=== PATIENT | female | born 1955 ===

== ENCOUNTER → 2016-08-11 | Outpatient (CLI) | payer OTHER ==
--- NOTE | 2016-08-11 11:56 | XR ---
Bilateral knees HISTORY: Chronic knee pain 2 views of each knee submitted. No comparisons Marginal spurring and joint space loss is most pronounced in the medial compartments bilaterally. Ali gnment is maintained and bone mineralization is mildly reduced. No evident joint effusion. IMPRESSION: Osteoarthritis
--- NOTE | 2016-08-11 11:58 | XR ---
Lumbar spine HISTORY: Back pain 3 views of the lumbar spine correlated to previous exam 05 August 2015 No significant interval change is evident. Bone mineralization is reduced. Lumbar vertebral bodies sh ow preserved height and alignment. Minimal anterolisthesis grade 1 L5-S1. Sclerosis present in the po sterior elements. Mild multilevel spondylosis. Disc spaces are maintained. IMPRESSION: Degenerative disc disease, facet arthropathy, osteopenia, stable exam
== END | disposition home or self-care (01) ==
LOC: RADXRMAIN 10:47
PROVIDERS: ATTEND Internal Medicine
DX: M17.0 Bilateral primary osteoarthritis of knee (principal); M51.36 Other intervertebral disc degeneration, lumbar region; M46.86 Other specified inflammatory spondylopathies, lumbar region
CPT/HCPCS: 72100

== ENCOUNTER 2016-09-08 08:46 | Day surgery (SDC) | payer OTHER ==
[2016-09-07 09:22] VITALS: BMI 38.9
[~2016-09-08 08:46] MED LIST: LACTATED RINGERS 1,000 ML IV SCH; LIDOCAINE 1% 20 ML VIAL (10MG/ML) FOR IV START INTRADERMA PRN
[2016-09-08 10:16] VITALS: RESP 16; TEMP 97
[2016-09-08] MEDS ORDERED: LIDOCAINE 1% 20 ML VIAL (10MG/ML) FOR IV START INTRADERMA ONE (10:27)
[2016-09-08 10:29] LABS: Glucose,Whole Blood 104 mg/dL (75-99)
[2016-09-08] MEDS ORDERED: PROPOFOL 10 MG/ML 20 ML VIAL IV ONE (10:29)
[2016-09-08 11:30] VITALS: BP 110/76; PULSE 82
[2016-09-08 11:30] LABS: Glucose,Whole Blood 109 mg/dL (75-99)
--- NOTE | 2016-09-09 00:24 | P.PCN ---
Date of Procedure: 09/08/16 Procedure(s) Performed: Procedure: 1. Esophagogastroduodenoscopy and biopsy. 2. Colonoscopy and biopsy. Preoperative diagnosis: Change in bowel habits. Postoperative diagnosis: 1. Small sliding hiatal hernia with no obvious esophagitis or complicated reflux disease. 2. Mild gastritis. 3. Mild diverticulosis of the colon, otherwise, colon and terminal ileum within normal limits, biopsies obtained. Brief clinical history: the patient is a 61-year old female who I have evaluated in the office earlier this month for post-prandial diarrhea of 7 years duration. No alarm symptoms. Had a prior EGD 7 years ago and colonoscopy 15 years ago. No alarm symptoms. Procedure: With the patient on her left lateral decubitus position and after informed consent and adequate sedation, I passed the Olympus-GIF 160 video upper endoscope through the cricopharyngeus down the esophagus. GE junction was around 38 cm from the incisors and there was a small sliding hiatal hernia. The esophagus did not show any erosions, ulcers, strictures or Ritter's esophagus. The endoscope was then passed into the stomach which was insufflated with air and inspected in detail including the retroflex view in the cardia. There was some mottling and erythema in the antrum but no ulcers or erosions. Pyloric channel did not show any ulcers. Duodenal bulb, post bulbar area and descending duodenum showed minimal erythema. I obtained biopsies from the duodenum, antrum and esophagus then the endoscope was withdrawn and I proceeded with the colonoscopy. Perianal area did not show any fissures or fistulas. There were no masses felt on digital rectal examination. The Olympus CFQ 160L video colonoscope was then inserted in the rectum in the usual fashion and advanced to the cecum. I intubated the ileocecal valve and examined the terminal ileum. There were few diverticular orifices seen scattered along the length of the bowel mostly on the left side with no evidence of acute diverticulitis or strictures. The mucosa of the colon and terminal ileum appeared healthy. No polyps or tumors were seen. Biopsies were obtained from the terminal ileum and colon, then I retroflexed the endoscope in the rectum before the endoscope was withdrawn. The patient tolerated the procedure well. Plan: The patient was reassured. I discussed also with her son. Will await pathology results. She will follow-up with you as planned and I will see in the office and keep you updated on her progress.
== END 2016-09-08 11:44 | disposition home or self-care (01) ==
LOC: ORWHC2ENDO 08:46
DX: K20.0 Eosinophilic esophagitis (principal); K29.50 Unspecified chronic gastritis without bleeding; K44.9 Diaphragmatic hernia without obstruction or gangrene; K57.30 Diverticulosis of large intestine without perforation or abscess without bleeding; I10 Essential (primary) hypertension; E11.9 Type 2 diabetes mellitus without complications; Z79.84 Long term (current) use of oral hypoglycemic drugs; Z79.899 Other long term (current) drug therapy
CPT/HCPCS: 88305; 88342; 45380; 43239; J2704

== ENCOUNTER → 2016-09-21 | Outpatient (CLI) | payer OTHER ==
--- NOTE | 2016-09-21 22:10 | MR ---
EXAMINATION TYPE: MR jeffery/daja wo con DATE OF EXAM: 09/21/2016 6:56 PM COMPARISON: NONE HISTORY: Osteoarthritis CONTRAST: 0 mL intravenous MultiHance. TECHNIQUE: Multiplanar, multisequence images of the lumbar spine were acquired. FINDINGS: L5-S1: No significant disc bulge or disc herniation. No spinal canal stenosis. No foraminal stenosi s. Mild facet hypertrophy is present. Disc desiccation is present. Mild grade 1 spondylolisthesis ma y be present. L4-L5: No significant disc bulge or disc herniation. No spinal canal stenosis. No foraminal stenosi s. Mild left facet hypertrophy is present. Disc desiccation is present.. L3-L4: No significant disc bulge or disc herniation. No spinal canal stenosis. No foraminal stenosi s. . L2-L3: No significant disc bulge or disc herniation. No spinal canal stenosis. No foraminal stenosi s. . L1-L2: No significant disc bulge or disc herniation. No spinal canal stenosis. No foraminal stenosi s. . T12-L1: No significant disc bulge or disc herniation. No spinal canal stenosis. No foraminal stenos is. . Cord terminates at the L1 level. IMPRESSION: 1. Disc desiccation L4-5 L5-S1. 2. Minimal grade 1 spondylolisthesis of L4 anterior and L5. 3. Very mild facet hypertrophy present L4-5 L5-S1. EXAMINATION TYPE: MR jeffery/daja wo con DATE OF EXAM: 09/21/2016 6:56 PM COMPARISON: NONE HISTORY: Osteoarthritis CONTRAST: Performed utilizing 0 mL intravenous MultiHance gadolinium contrast. TECHNIQUE: Multiplanar multiecho imaging on a 3.0 Ginette magnet is performed through the cervical spin e. Some artifact appears to be present. FINDINGS: The craniovertebral junction is normal. Vertebral body alignment is normal. C7-T1: No focal disc herniation or significant disc bulge is evident. No spinal canal stenosis or n eural foraminal stenosis is present. C6-7: Some right paracentral disc bulge may be present with minimal anterior thecal sac contact. No s mallorie canal stenosis present. No cord contact is evident. Neural foramen are patent.. C5-6: Broad-based disc bulge has anterior thecal sac compression. Borderline spinal canal stenosis is present. Cord contact is present. Signal abnormality is not clearly identified. Artifact somewhat li mits this evaluation. Right foramen is patent. There is moderate left foraminal stenosis. Subligament ous central disc herniation extending superiorly may be present.. C4-5: No focal disc herniation or significant disc bulge is evident. No spinal canal stenosis or malaika ral foraminal stenosis is present. C3-4: Central and right paracentral broad-based disc bulge is present. This has cord contact. AP spin al canal stenosis is present measuring 0.8 cm. Left foramen is patent. Moderate right foraminal narro wing is present. Correlate with radicular symptoms.. C2-3: No focal disc herniation or significant disc bulge is evident. No spinal canal stenosis or malaika ral foraminal stenosis is present. IMPRESSIONS: 1. Central right paracentral broad-based disc bulging C3-4 and broad-based disc bulging C5-6 with mod erate anterior thecal sac compression. Spinal canal stenosis present at these levels. 2. Uncovertebral joint hypertrophy and disc bulging causing foraminal stenosis on the right at C3-4 a nd C5-6.
== END | disposition home or self-care (01) ==
LOC: RADMRIMAIN 17:29
PROVIDERS: ATTEND Internal Medicine
DX: M43.16 Spondylolisthesis, lumbar region (principal); M48.02 Spinal stenosis, cervical region; M99.71 Connective tissue and disc stenosis of intervertebral foramina of cervical region; M50.21 Other cervical disc displacement, high cervical region
CPT/HCPCS: 72141; 72148

== ENCOUNTER 2016-10-31 11:45 | Emergency (ER) | payer OTHER ==
[2016-10-31 12:01] VITALS: RESP 18; TEMP 99
--- NOTE | 2016-10-31 12:24 | ED ---
ENT HPI - General Chief complaint: ENT Stated complaint: SORE THROAT Time Seen by Provider: 10/31/16 12:03 Source: family Mode of arrival: wheelchair Limitations: language barrier - History of Present Illness Initial comments: Patient is a 61-year-old female presenting to the emergency department with her complaining of sore throat. Patient only speaks and most of information is obtained from son via phone and minimal history from who is at bedside who doesn't speak very good Bulgarian either. Per son, patient started complaining of chills and fevers 2 days ago. When asked where it hurts , patient points to left side neck just below her left ear. at bedside states that he also had a sore throat but it lasted only for 1 day and it's now gone. - Related Data Home Medications Medication Instructions Recorded Confirmed Losartan [Cozaar] 50 mg PO DAILY 09/07/16 09/07/16 glipiZIDE [Glucotrol] 10 mg PO AC-BRKFST 09/07/16 09/07/16 Allergies Allergy/AdvReac Type Severity Reaction Status Date / Time No Known Allergies Allergy Verified 10/31/16 12:01 Review of Systems ROS Statement: Those systems with pertinent positive or pertinent negative responses have been documented in the HPI. ROS Other: All systems not noted in ROS Statement are negative. Past Medical History Past Medical History: Diabetes Mellitus, Hypertension History of Any Multi-Drug Resistant Organisms: None Reported Past Surgical History: Section, Hysterectomy Past Anesthesia/Blood Transfusion Reactions: No Reported Reaction Past Psychological History: No Psychological Hx Reported Smoking Status: Never smoker Past Alcohol Use History: None Reported Past Drug Use History: None Reported - Past Family History Mother Family Medical History: No Reported History General Exam Limitations: language barrier General appearance: alert, in no apparent distress Head exam: Present: atraumatic, normocephalic, normal inspection Eye exam: Present: normal appearance, PERRL, EOMI. Absent: scleral icterus, conjunctival injection, periorbital swelling, periorbital tenderness ENT exam: Present: normal oropharynx, mucous membranes moist, TM's normal bilaterally, normal external ear exam Expanded Ear exam: Present: normal external inspection Mouth exam: Present: normal external inspection, tongue normal. Absent: drooling, trismus, tongue elevation Teeth exam: Present: normal inspection Throat exam: normal inspection, other (Posterior pharynx slightly reddened). negative: tonsillar erythema, tonsillomegaly, tonsillar exudate, R peritonsillar mass, L peritonsillar mass Neck exam: Present: normal inspection, full ROM, lymphadenopathy (Tender cervical lymph node). Absent: tenderness, meningismus Respiratory exam: Present: normal lung sounds bilaterally. Absent: respiratory distress, wheezes, rales, rhonchi, stridor Cardiovascular Exam: Present: regular rate, normal rhythm, normal heart sounds GI/Abdominal exam: Present: soft, normal bowel sounds. Absent: tenderness, guarding Extremities exam: Present: normal inspection, full ROM, normal capillary refill. Absent: tenderness Back exam: Present: normal inspection, full ROM Neurological exam: Present: alert, normal gait Psychiatric exam: Present: normal affect, normal mood Skin exam: Present: warm, dry, intact, normal color Course Vital Signs 10/31/16 11:56 Temperature 99 F Pulse Rate 92 Respiratory 18 Rate Blood Pressure 126/74 Medical Decision Making - Medical Decision Making Patient is 61-year-old female presenting to the emergency department with complaints of fevers, chills, and sore throat. Strep screen negative. Chest x- ray with evidence of cardiomegaly with no evidence of heart failure as read by radiologist. Patient discharged home in stable condition with the impression of viral pharyngitis. Patient started to follow-up with primary care physician and return to the emergency department if symptoms do not improve or get worse. - Lab Data Lab Results 10/31/16 Range/Units 12:15 Group A Strep Rapid Negative (Negative) - Radiology Data Radiology results: report reviewed Chest x-ray Disposition Clinical Impression: Pharyngitis Disposition: HOME SELF-CARE Condition: Good Instructions: Pharyngitis (ED) Additional Instructions: Increase hydration. May take Motrin or Tylenol for pain. Soft diet. Please follow-up with the primary care physician as directed. If symptoms do not improve or get worse previous return to the emergency department. Referrals: Vipul Cabrera MD [Primary Care Provider] - 1-2 days Time of Disposition: 14:39
--- NOTE | 2016-10-31 14:20 | XR ---
EXAMINATION TYPE: XR chest 2V DATE OF EXAM: 10/31/2016 1:58 PM COMPARISON: NONE HISTORY: Sore throat TECHNIQUE: Frontal and lateral views of the chest are obtained. FINDINGS: There is general coarsening of interstitial markings. Heart appears enlarged. There is no pleural effusion. There are no hilar masses. There is thoracic mild kyphotic curvature. IMPRESSION: Cardiomegaly. Coarse lung markings probably related to pulmonary fibrosis. I see no pleu ral fluid to suggest heart failure.
[2016-10-31 15:07] VITALS: BP 124/74; PULSE 94
== END 2016-10-31 15:05 | disposition home or self-care (01) ==
LOC: EC 11:45
DX: J02.8 Acute pharyngitis due to other specified organisms (principal); I10 Essential (primary) hypertension; E11.9 Type 2 diabetes mellitus without complications; Z79.899 Other long term (current) drug therapy
CPT/HCPCS: 71020; 87081; 87430; 99283

== ENCOUNTER → 2016-11-27 | Outpatient (CLI) | payer OTHER ==
[2016-11-27 13:30] VITALS: BP 116/81; PULSE 81; RESP 16
--- NOTE | 2016-11-27 14:41 | P.CONS ---
History of Present Illness - Reason for Consult Consult date: 11/27/16 - History of Present Illness This is the initial consultation visit for this 61-year-old female with a chronic history of severe neck pain with radiation to the upper extremities associated with numbness and tingling sensation, pain started more than 15 years ago, and a increased in intensity over time, she denies any initiating event, also patient complained of severe low back pain with radiation to the posterior aspect of her lower extremity bilaterally, the pain is interfering with her quality of life and make are not able to ambulate, she used cane to walk, she denies any fever or night sweats she denies any change in the bowel movements or urination. Past Medical History Past Medical History: Diabetes Mellitus, Hypertension History of Any Multi-Drug Resistant Organisms: None Reported Past Surgical History: Section, Hysterectomy Past Anesthesia/Blood Transfusion Reactions: No Reported Reaction Past Psychological History: No Psychological Hx Reported Smoking Status: Never smoker Past Alcohol Use History: None Reported Past Drug Use History: None Reported - Past Family History Mother Family Medical History: No Reported History Medications and Allergies Home Medications Medication Instructions Recorded Confirmed Type Losartan [Cozaar] 50 mg PO DAILY 09/07/16 11/27/16 History glipiZIDE [Glucotrol] 10 mg PO AC-BRKFST 09/07/16 11/27/16 History Allergies Allergy/AdvReac Type Severity Reaction Status Date / Time No Known Allergies Allergy Verified 10/31/16 12:01 Physical Exam Vitals: Vital Signs Pulse Resp BP Pulse Ox 11/27/16 13:08 81 16 116/81 97 Intake and Output 11/26/16 11/27/16 11/27/16 22:59 06:59 14:59 Other: Weight 108.862 kg Patient Weight 11/28/16 06:59 Weight 108.862 kg Social history : not smoker , NO ETOH , NO Illegal drugs use . Review of Systems : 1- Constitutional : no chills , no fever , no night sweats , 2- Ears : no ear discharge , no change in hearing 3-Nose, Mouth ,Throat ; no bleeding gums, no sore throat , no epistaxis , 4-Cardiovascular : Denies chest pain, , no orthopnea , no palpitation 5-Respiratory : Denies cough , no dyspnea , no hemoptysis 6-Gastrointestinal :, no change in bowel habits , no coffee- ground emesis . 7-Genitourinary : No hematuria , no discharge , no incontinence, 8-Musculoskeletal : ++gait dysfunction , report low back pain , 9- Neurological : no ataxia , no tremor , no sezure , 10-Psychatric , no suicidal ideation no hallucination 11- Endocrine : no cold intolerence , no polyuria , no polydypsia , 12-Hematologic : no easy bleeding , no easy brusing , 13-Allergic / immunology : no angioedema , no wheezing ,no allergic rhinitis 14-Integumentary : no brttle nails , no change hair / nails , no foot/leg ulcers . Physical Examinations : 1-Constitutional : Cooperative , not in acute distress . 2-HEENT : nech ; supple , no Lymphadenopathy , no Thyromegaly , :eyes , no icterus, no photophobia . ENT : , normal oropharynx , no Thrush 3- Respiratory : Chest clear to auscultations Bilaterally , no wheezing . 4- Cardiovascular : regular rate and rhythem , S1 , S2 , no S3 , no S4. 5- Gastrointestinal: abdomen soft no tenderness , no organomegally . 6- Genitourinary : Defferred . 7-Integumentary : No cellulitis , no ulcers , normal skin turgor , no cyanotic . 8- neurologic : Cranial nerve II to XII intact , no focal neurological deffecit 9-psychatric : alert , oriented X 3 , appropriate affect , intact judgment and insight . 10-Lymphatic : no Lymphadenopathy. 11- musculoskeltal: normal gait Cervical Spine motor stregnth in the deltoid and biceps, normal right side , normal Left side motor stregnth biceps and the wrist extensors normal right side ,normal left side . motor stregnth in the triceps muscle . normal Right side , normal Left side deep tendon reflexes normal at the biceps , normal at Brachioradialis , normal at triceps. positive cervical facet loading test . Lumber spine moter stegnth lower extremities ,thigh and legs 4/5 Right side , 4/5 Left side deep tendon reflexes : normal Knee Jerk , normal ankle Jerk positive lumber facet Loading Test Range of motion of the lumbar spine Flexion 30 degrees, extension 10 degrees strait leg raising test , positive at 45 degree Fabere test positive RT and positive LT . Results Comments: MRI of the cervical spine done September 21 2016 mL 34 central disc C5-C6 broad based disc bulging at C6 7 disc bulging. MRI of the lumbar spine L4 5 and L5-S1 facet joint hypertrophy Assessment and Plan Plan: Assessment and plan=1-cervical radiculopathy. 2-cervical bulging disc disease. 3-lumbar spondylosis with facet arthropathy without myelopathy Patient could benefit from Neurontin 100 mg daily at bedtime increased gradually to 3 times a day Patient could benefit from cervical epidural steroid injections under fluoroscopy guidance, After we treat her neck pain then we can focus or attention to the low back pain , and patient will benefit from diagnostic medial branch block and possibly radiofrequency ablation of the medial branch lumbar area Time with Patient: Greater than 30
== END | disposition home or self-care (01) ==
LOC: PNWHC3 12:45
PROVIDERS: ATTEND Specialist
DX: M50.122 Cervical disc disorder at C5-C6 level with radiculopathy (principal); M47.816 Spondylosis without myelopathy or radiculopathy, lumbar region; M46.96 Unspecified inflammatory spondylopathy, lumbar region; E11.9 Type 2 diabetes mellitus without complications; I10 Essential (primary) hypertension; Z79.899 Other long term (current) drug therapy
CPT/HCPCS: 99211

== ENCOUNTER 2016-12-31 10:47 | Day surgery (SDC) | payer OTHER ==
[~2016-12-31 10:47] MED LIST changes: -LIDOCAINE 1% 20 ML VIAL (10MG/ML) FOR IV START INTRADERMA PRN
[2016-12-31 11:07] VITALS: RESP 16
[2016-12-31 11:14] VITALS: TEMP 98.2
[2016-12-31 11:18] LABS: Glucose,Whole Blood 93 mg/dL (75-99)
[2016-12-31] MEDS ORDERED: LIDOCAINE 1% 20 ML VIAL (10MG/ML) FOR IV START INTRADERMA ONE (11:18)
--- NOTE | 2016-12-31 11:52 | P.PCN ---
Date of Procedure: 12/31/16 Preoperative Diagnosis: Cervical stenosis Postoperative Diagnosis: Cervical stenosis Procedure(s) Performed: Cervical epidural steroid injection under fluoroscopic guidance Implants: Anesthesia: other (Local with moderate sedation) Surgeon: Emmanuel Hernandez Pathology: none sent Condition: stable Disposition: PACU Indications for Procedure: Operative Findings: Description of Procedure: Patient was seen in preop holding area consent was obtained then she was brought into the procedure 1 placed in prone position. Skin was prepped with Betadine 3 and draped in sterile manner. Lidocaine 1% was used to numb the skin up at the target point that was at the C7-T1 level in the left paramedian approach. I used 20-gauge 3-1/2 inch Touhy epidural needle with loss-of- resistance to air to identify the epidural space. First the needle tip contacted the lamina of T1 and then it walked off the bone and into the epidural space between C7 and T1 was positive [id number] to air negative aspiration for any CSF or blood negative paresthesia I then injected 1 mL of Omnipaque which showed typical epidurogram the view of fluoroscopy. Then I injected 10 mg of Decadron +4 MLS of posterior free normal saline to a total volume of 5 MLS in epidural space. Patient tolerated procedure well.
--- NOTE | 2016-12-31 12:01 | FL ---
EXAMINATION TYPE: FL guided pain mgmt statistic DATE OF EXAM: 12/31/2016 HISTORY: Flouroscopy time 5 seconds of fluoroscopy provided. IMPRESSION: 1. Fluoroscopy time.
[2016-12-31] MEDS ORDERED: IV FLUID CONTINUATION 1,000 ML IV ONE (12:02)
[2016-12-31 12:22] VITALS: BP 110/70; PULSE 82
== END 2016-12-31 12:33 | disposition home or self-care (01) ==
LOC: ORPAIN 10:47
PROVIDERS: ATTEND Anesthesiology
DX: M48.02 Spinal stenosis, cervical region (principal); E66.01 Morbid (severe) obesity due to excess calories
CPT/HCPCS: 62321; J2250; J1100; Q9965; J3010

== ENCOUNTER 2017-01-28 07:11 | Day surgery (SDC) | payer OTHER ==
[2017-01-22 15:07] VITALS: BMI 39.9
[2017-01-28 07:39] LABS: Glucose,Whole Blood 92 mg/dL (75-99)
[2017-01-28 07:46] VITALS: TEMP 98.4
[2017-01-28] MEDS ORDERED: LIDOCAINE 1% 20 ML VIAL (10MG/ML) FOR IV START INTRADERMA ONE (07:50)
[2017-01-28] MEDS ORDERED: IV FLUID CONTINUATION 1,000 ML IV ONE ×2 (07:50→08:41)
[2017-01-28] MEDS ORDERED: LACTATED RINGERS 1,000 ML IV SCH (08:00)
--- NOTE | 2017-01-28 08:31 | P.PCN ---
Date of Procedure: 01/28/17 Preoperative Diagnosis: Postoperative Diagnosis: Procedure(s) Performed: Implants: Surgeon: Catarino Shane Pathology: none sent Condition: stable Disposition: PACU Indications for Procedure: Operative Findings: Description of Procedure: PREOPERATIVE DIAGNOSIS: Cervical radiculopathy. POSTOPERATIVE DIAGNOSIS: Cervical radiculopathy. PROCEDURE 1. Cervical epidural steroid injection under fluoroscopic guidance, C7-T1 level. 2. Cervical epidurogram. ANESTHESIA: Local anesthesia with 1% lidocaine and IV sedation with versed. EBL: Minimal PROCEDURE INDICATION: The patient with neck pain and radiculitis unresponsive to conservative treatment consents for procedure. No use of blood thinners per patient's son. Relief for 2-3 weeks from last ELLYN. PROCEDURE DESCRIPTION / TECHNIQUE: The patient was seen and identified in the preoperative area. Risks, benefits, complications, and alternatives were discussed with the patient (including but not limited to incomplete pain relief, bleeding, infection, nerve damage, and allergies to medications), the patient agreed to proceed with the procedure and signed the consent after all questions were answered. Patient was taken to the OR and time out was completed to verify proper patient , position, laterality of pain, and allergies. Pt was placed in the prone position. A pillow was placed under the patients chest to increase the cervical interlaminar space. The cervical area was prepped and draped in the usual sterile fashion. Critical pause was taken. Vital signs were closely monitored during the procedure. Conscious sedation was used during the procedure to decrease patients anxiety. Using anterior-posterior fluoroscopy, the C7-T1 interlaminar space was identified and the skin over this site was marked and then infiltrated with 1% lidocaine subcutaneously in a paramedian fashion. Subsequently, a 20-gauge 3-1/2 -inch Tuohy epidural needle was inserted and advanced toward the epidural space by means of the loss of resistance technique and guided by AP and lateral fluoroscopy. After negative aspiration for blood or CSF and in the absence of paresthesias, the correct needle position in the epidural space was verified with the injection of 1 mL of the water soluble contrast dye Omnipaque-180 and observing an excellent epidurogram with the epidural spread of the dye, after negative aspiration for blood and CSF and in the absence of paresthesias. Again after negative aspiration, a 4 ml mixture containing 20 mg of Decadron and 2 ml of preservative free Normal Saline solution was injected and a washout of epidurogram was seen. Needle was withdrawn intact, skin was cleansed, and bandages were applied. COMPLICATIONS: None COMMENTS: DISPOSITION / PLANS: The patient was placed in a supine position and transferred to the recovery area in a stable condition for observation. There was no evidence of upper extremity motor or sensory deficit after the procedure. Patient was discharged from the recovery room after meeting discharge criteria. Home discharge instructions were given to the patient by the staff. The patient was reexamined prior to discharge and there were no issues. The patient will schedule a third ELLYN in 2-4 weeks.
[2017-01-28 08:40] VITALS: BP 115/66; PULSE 83; RESP 16
[2017-01-28 08:40] LABS: Glucose,Whole Blood 90 mg/dL (75-99)
--- NOTE | 2017-01-28 09:06 | FL ---
EXAMINATION TYPE: FL guided pain mgmt statistic DATE OF EXAM: 01/28/2017 HISTORY: Flouroscopy time 39 seconds of fluoroscopy provided. IMPRESSION: 1. Fluoroscopy time.
== END 2017-01-28 09:14 | disposition home or self-care (01) ==
LOC: ORPAIN 07:11
PROVIDERS: ATTEND Anesthesiology
DX: M54.12 Radiculopathy, cervical region (principal)
CPT/HCPCS: 62321; 99152; J2250; J1100; Q9965

== ENCOUNTER 2017-02-11 08:13 | Day surgery (SDC) | payer OTHER ==
[2017-02-10 11:12] VITALS: BMI 39.9
[2017-02-11 08:34] VITALS: RESP 16; TEMP 98.1
[2017-02-11 08:34] LABS: Glucose,Whole Blood 88 mg/dL (75-99)
[2017-02-11] MEDS ORDERED: LIDOCAINE 1% 20 ML VIAL (10MG/ML) FOR IV START INTRADERMA ONE (08:35)
--- NOTE | 2017-02-11 08:58 | P.PCN ---
Date of Procedure: 02/11/17 Preoperative Diagnosis: Cervical radiculopathy Postoperative Diagnosis: Same as above Procedure(s) Performed: Cervical epidural steroid injection under fluoroscopic guidance Implants: Anesthesia: other (Conscious sedation with IV fentanyl and Versed) Surgeon: Emmanuel Hernandez Pathology: none sent Condition: stable Disposition: PACU Indications for Procedure: Operative Findings: Description of Procedure: The patient was seen in preop holding area consent was obtained and was brought into the procedure 1 placed in prone position. Skin was prepped with Betadine 3 and draped in a sterile manner. Lidocaine 1% was used to numb the skin up at the target point that was C7-T1 level in the left paramedian approach. 20- gauge 3-1/2 inch Touhy epidural needle with [id number] to air identify the epidural space. There was positive [id number] to air and negative aspiration for any CSF or blood at about 8.5 cm from skin. Then injected 1 mL of Omnipaque which showed typical epidurogram on the AP view of fluoroscopy after that I injected a 20 mg of Decadron +3 MLS of preservative-free normal saline to a total volume of 5 MLS in epidural space. He Patient tolerated procedure well.
[2017-02-11 09:09] LABS: Glucose,Whole Blood 91 mg/dL (75-99)
--- NOTE | 2017-02-11 09:12 | FL ---
EXAMINATION TYPE: FL guided pain mgmt statistic DATE OF EXAM: 02/11/2017 HISTORY: Flouroscopy time 15 seconds of fluoroscopy provided. IMPRESSION: 1. Fluoroscopy time.
[2017-02-11 09:31] VITALS: BP 100/69; PULSE 86
== END 2017-02-11 09:43 | disposition home or self-care (01) ==
LOC: ORPAIN 08:13
DX: M54.12 Radiculopathy, cervical region (principal); E11.9 Type 2 diabetes mellitus without complications; E66.9 Obesity, unspecified
CPT/HCPCS: 62321; 99152; J2250; J1100; Q9965; J3010

== ENCOUNTER → 2018-08-17 | Outpatient (CLI) | payer MEDICARE, OTHER ==
--- NOTE | 2018-08-17 15:56 | MR ---
EXAMINATION TYPE: MR jeffery/daja wo con DATE OF EXAM: 08/17/2018 COMPARISON: 09/21/2016 HISTORY: low back pain/neck pain CONTRAST: Performed utilizing 0 mL intravenous Gadavist gadolinium contrast. TECHNIQUE: Multiplanar multiecho imaging on a 3.0 Ginette magnet is performed through the cervical spin e. FINDINGS: The craniovertebral junction is normal. Vertebral body alignment is normal. Disc desicca tion is present throughout the cervical spine. Disc heights are preserved. Signal through the spinal cord appears normal. C7-T1: No focal disc herniation or significant disc bulge is evident. No spinal canal stenosis or n eural foraminal stenosis is present. C6-7: No focal disc herniation or significant disc bulge is evident. No spinal canal stenosis or malaika ral foraminal stenosis is present. C5-6: Broad-based disc bulge is present. This is greater into the left paracentral canal. Cord contac t is present. Minimal cord flattening may be present on the right paracentral region. No AP spinal ca nal stenosis present. Neural foramen have mild narrowing.. C4-5: There is a tiny central protrusion with mild anterior thecal sac compression. No spinal canal s tenosis or neural foraminal stenosis present. No cord contact is evident.. C3-4: There is central protrusion with moderate anterior thecal sac compression. Minimal cord contact may be present. No deformity is identified. No spinal canal stenosis or neural foraminal stenosis is present.. C2-3: No focal disc herniation or significant disc bulge is evident. No spinal canal stenosis or malaika ral foraminal stenosis is present. IMPRESSIONS: 1. Disc bulging C5-6 greater into the right paracentral region has moderate anterior thecal sac compr ession minimal cord flattening of the right. No stenosis is present. 2. Central disc protrusion C3-4, C4-5 without cord contact or stenosis. EXAMINATION TYPE: MR jeffery/daja wo con DATE OF EXAM: 08/17/2018 COMPARISON: 09/21/2016 HISTORY: low back pain/neck pain CONTRAST: 0 mL intravenous Gadavist. TECHNIQUE: Multiplanar, multisequence images of the lumbar spine were acquired. FINDINGS: Minimal disc bulge is present L5-S1 with epidural space presence. No compression of the thecal sac is evident. No spinal canal stenosis present. Neural foramen are patent. Disc heights are preserved. Vertebral body heights are preserved. Minimal disc desiccation is present through the lumbar spine greatest at L4-5. IMPRESSION: 1. Minimal disc bulging L5-S1
== END ==
LOC: RADMRIMAIN 13:07
PROVIDERS: ATTEND Internal Medicine
DX: M50.21 Other cervical disc displacement, high cervical region (principal); M51.27 Other intervertebral disc displacement, lumbosacral region
CPT/HCPCS: 72141; 72148

== ENCOUNTER → 2019-03-01 | Outpatient (CLI) | payer MEDICARE, OTHER ==
[2019-03-01 20:30] LABS: Gliadin AB IgA, Unit 12.6 U/mL
== END | disposition home or self-care (01) ==
LOC: LABWHC1 11:25
PROVIDERS: ATTEND Nurse Practitioner
DX: K52.9 Noninfective gastroenteritis and colitis, unspecified (principal); B96.81 Helicobacter pylori [H. pylori] as the cause of diseases classified elsewhere
CPT/HCPCS: 36415; 83516; 85652

== ENCOUNTER → 2019-03-01 | Outpatient (CLI) | payer MEDICARE, OTHER ==
[2019-03-01 12:07] LABS: Appearance,Urine Clear (Clear); Bilirubin,Urine Negative (Negative); Blood,Urine Negative (Negative); Color,Urine Yellow; Glucose,Urine (UA) Negative (Negative); Ketones,Urine Negative (Negative); Leukocyte Esterase,Urine Small (Negative); Mucus,Urine Rare /hpf; Nitrite,Urine Negative (Negative); Protein,Urine Negative (Negative); RBC,Urine 2 /hpf (0-5); Specific Gravity,Urine 1.023 (1.001-1.035); Squamous Epithelial Cell,Urine <1 /hpf (0-4); Urobilinogen,Urine <2.0 mg/dL (<2.0); WBC,Urine 7 /hpf (0-5)
[2019-03-01 12:30] LABS: Basophils # (A) 0.2 k/uL (0-0.2); Basophils % (A) 3 %; Eosinophils # (A) 0.3 k/uL (0-0.7); Eosinophils % (A) 4 %; HCT 40.7 % (34.0-46.0); HGB 13.4 gm/dL (11.4-16.0); Lymphocytes # (A) 1.9 k/uL (1.0-4.8); Lymphocytes % (A) 23 %; MCH 29.4 pg (25.0-35.0); MCHC 32.9 g/dL (31.0-37.0); MCV 89.3 fL (80.0-100.0); Mean Platelet Volume 8.1; Monocytes # (A) 0.5 k/uL (0-1.0); Monocytes % (A) 6 %; Neutrophils # (A) 5.3 k/uL (1.3-7.7); Neutrophils % (A) 63 %; Platelet Count 287 k/uL (150-450); RBC 4.56 m/uL (3.80-5.40); RDW 14.8 % (11.5-15.5); WBC 8.4 k/uL (3.8-10.6)
[2019-03-01 12:40] LABS: INR 0.9 (<1.2); Partial Thromboplastin Time 26.9 sec (22.0-30.0); Prothrombin Time 9.6 sec (9.0-12.0)
[2019-03-01 12:41] LABS: African American GFR (CKD) >90 (>60 ml/min/1.73 sqM); Anion Gap 11 mmol/L; Blood Urea Nitrogen 22 mg/dL (7-17); Carbon Dioxide 28 mmol/L (22-30); Chloride 102 mmol/L (98-107); Glucose 110 mg/dL (74-99); Potassium 4.7 mmol/L (3.5-5.1); Sodium 141 mmol/L (137-145)
--- NOTE | 2019-03-01 15:40 | XR ---
EXAMINATION TYPE: XR chest 2V DATE OF EXAM: 03/01/2019 COMPARISON: Prior chest x-ray 10/31/2016 HISTORY: Z01.818 MR preop TECHNIQUE: Frontal and lateral views of the chest are obtained. FINDINGS: There is a spinal curvature, patient is rotated. Heart is enlarged as on prior exam. There is no focal air space opacity, pleural effusion, or pneumothorax seen. Prominent interstitium is agai n noted. The osseous structures are intact. IMPRESSION: Stable cardiomegaly. There may be underlying interstitial lung disease.
== END | disposition home or self-care (01) ==
LOC: LABPAT 11:19
PROVIDERS: ATTEND Orthopaedic Surgery Orthopaedic Surgery of the Spine
DX: I51.7 Cardiomegaly (principal); Z01.818 Encounter for other preprocedural examination; Z01.812 Encounter for preprocedural laboratory examination; M48.02 Spinal stenosis, cervical region
CPT/HCPCS: 71046; 80048; 81001; 85025; 85610; 85730; 93005

== ENCOUNTER 2019-03-06 11:59 | Day surgery (SDC) | payer MEDICARE, OTHER ==
[2019-03-01 13:03] VITALS: BMI 40.7
[~2019-03-06 11:59] MED LIST changes: +BACITRACIN 50,000 UNIT, POLYMYXIN B 500,000 UNIT in SODIUM CHLORIDE 0.9% IRRIGATIO 1,00... IRRIGATION ONE; +DEXAMETHASONE SOD PHOSPHATE 10 MG/ML 1 ML VIAL IV ONE; -LACTATED RINGERS 1,000 ML IV SCH; +LIDOCAINE 1% 20 ML VIAL (10MG/ML) FOR IV START INTRADERMA PRN; +MIDAZOLAM 2 MG/2 ML VIAL IV PRN; +ONDANSETRON 4 MG/2 ML VIAL IVP ONE
[2019-03-06] MEDS: LACTATED RINGERS 1,000 ML IV SCH (12:33)
[2019-03-06 12:41] LABS: Glucose,Whole Blood 105 mg/dL (75-99)
[2019-03-06] MEDS ORDERED: PHENYLEPHRINE-0.9% NACL SYG 1 MG/10 ML SYRINGE ONE (12:52)
[2019-03-06] MEDS ORDERED: fentaNYL (PF) 50 MCG/ML 2 ML AMP ONE (12:52)
[2019-03-06] MEDS ORDERED: LIDOCAINE 1% INJ 10MG/ML (20 ML MDV) ONE (12:52)
[2019-03-06] MEDS ORDERED: SUCCINYLCHOLINE CHLORIDE 100 MG/5 ML SYR IV ONE (12:52)
[2019-03-06] MEDS ORDERED: MIDAZOLAM 2 MG/2 ML VIAL ONE (12:52)
[2019-03-06] MEDS ORDERED: DEXAMETHASONE SOD PHOS (MDV) 100 MG/10 ML VIAL ONE (12:52)
[2019-03-06] MEDS ORDERED: PROPOFOL 10 MG/ML 20 ML VIAL IV ONE (12:52)
[2019-03-06] MEDS ORDERED: GLYCOPYRROLATE 0.2 MG/ML 2 ML VIAL ONE (12:52)
[2019-03-06] MEDS ORDERED: BUPIVACAINE (PF) 0.5% 30 ML VIAL SQ ONE (13:36)
[2019-03-06] MEDS ORDERED: THROMBIN (BOVINE) 5,000 UNIT VIAL TOPICAL ONE (13:36)
[2019-03-06] MEDS ORDERED: GELATIN SPONGE,ABSORB (LARGE) 1 EACH SPONGE MISCELLANE ONE (13:36)
[2019-03-06] MEDS ORDERED: HYDROcodone/APAP 5-325MG 1 EACH TAB PO PRN (14:38)
[2019-03-06] MEDS ORDERED: BENZOCAINE/MENTHOL LOZENG 1 EACH LOZENGE MUCOUS MEM PRN (14:38)
[2019-03-06] MEDS ORDERED: HYDROmorphone 0.5 MG/0.5 ML SYRINGE IVP PRN (14:38)
[2019-03-06] MEDS ORDERED: traMADol 50 MG TAB PO PRN (14:39)
--- NOTE | 2019-03-06 14:50 | P.OP ---
Date of Procedure: 03/06/19 Preoperative Diagnosis: Severe cervical stenosis C5 6, upper gym radiculopathy, neck pain, degenerative disc disease, disc protrusion with herniation Postoperative Diagnosis: Same Anesthesia: GETA Pathology: none sent Condition: stable Disposition: PACU Description of Procedure: BRIEF OPERATIVE NOTE Preoperative Diagnosis:Severe cervical stenosis C5 6, upper gym radiculopathy, neck pain, degenerative disc disease, disc protrusion with herniation Postoperative Diagnosis:Severe cervical stenosis C5 6, upper gym radiculopathy, neck pain, degenerative disc disease, disc protrusion with herniation Procedure: Anterior cervical decompression with discectomy and fusion C5 6 Placement of interbody graft C5 6 Application of anterior cervical plate C5 6 Surgeon: Dr. Ugarte Analytical Research Chemist: Bobo LAFLEUR who is present throughout the entire the case persistence during positioning, dissection, exposure, visualization, and all crucial elements of the case as well as closure. Anesthesia: General anesthesia Estimated blood loss: Approximately 80 mL Complications: None apparent Components implanted: K2M [place] anterior cervical plate system with Vikos interbody allograft bone graft Disposition: To recovery room in good stable condition. OPERATIVE INDICATIONS The patient is non-Telugu speaker. All of her visits and preoperative evaluation was done via retail analyst usually with her son. Her son is present with her today in preoperative holding area. The patient has had long-standing issues in their neck and upper extremities. She has radiculopathy bilaterally at her upper extremities and has been treated for an extended period but is not having any benefit despite aggressive conservative care. She was found have severe spinal stenosis at C5 6 which correlated well with her neck and upper extremity symptoms. The patient has been through conservative treatment. We discussed various treatment options including surgery, and the patient wishes to proceed with surgery We discussed the risk, patient's alternatives and benefits of surgery including but not limited to, risk of bleeding risk of infection, ris k of need for further surgery, risk of decreased, loss of motion, muscle function, malunion nonunion, hardware failure, nerve damage, paralysis, heart attack, and . OPERATIVE SUMMARY After discussing all the risks, patient alternatives and benefits at length, the patient elected to proceed with surgical intervention, signed informed consent, and presented for their procedure. The patient was seen and examined in the preoperative holding area and the surgical site was marked. The patient was given antibiotics and brought to the operating room. The patient was positioned on the operating room table in a supine position being careful to pad any bony prominences and pressure points. The patient was sedated and intubated by anesthesia in standard fashion. Once the airway and C-spine were stabilized the patient's arms were padded and tucked at her side, with her shoulders gently taped. The head was placed in a donut pad with the neck in good neutral alignment and position. We were careful to maintain the patient's cervical spine and good neutral alignment and position throughout. The patient was prepped and draped in a normal standard fashion. An appropriate timeout and keystone protocol performed. We were able to proceed with the surgery. The local wound area was infiltrated with local anesthetic. An incision was made transversely approximately 2-1/2 cm over the appropriate levels at C5 6. Dissection was taken down subcutaneously to the level of the platysma which was split in line with its fibers. Dissection was taken with a carotid approach, with the trachea and esophagus medial and the carotid sheath laterally. We dissected down to the anterior surface of the vertebral bodies of C5 6. Intraoperative x-ray was taken which showed a marker at the appropriate level. With the appropriate level positively confirmed, at C5 6 we were able to proceed with discectomy at the appropriate levels. All of the operative levels were exposed appropriately. The patient had all their twitches back, and there was no evidence of recurrent laryngeal issue. The wound was copiously irrigated and suctioned dry as had been done periodically throughout the case. At the appropriate level/levels of C5 6, I established an annulotomy with an 11 blade scalpel. A discectomy was performed with a combination of pituitary rongeurs, curettes, a high-speed bur, and Kerrison rongeurs. The posterior longitudinal ligament was taken down as were any posterior osteophytes. This gave good central and bilateral foraminal decompression. There is no evidence of any dural tear or leak. The endplates were prepared with a high-speed bur. With the endplates in good parallel position, I was able to size for the appropriate size interbody graft. The wound was irrigated and suctioned dry the graft was prepared and malleted into position. It had good alignment and position with the anterior surface flush with the anterior surface of the vertebral bodies. With the grafts intact, I was able to measure and contour and appropriate sized plate. The plate was positioned at the midline over the appropriate levels of C5 6. Screw holes were established with a hand drill and drill guide. Screws were placed in good alignment and position with excellent bony purchase. They were seated under the locking device. The construct was checked and found to be stable. Intraoperative x-ray was taken which showed good alignment and position of the implants at the appropriate levels. There was no evidence of any dural tear or leak. Good hemostasis was maintained. The wound was copiously irrigated and suctioned dry as had been done periodically throughout the case. The platysma was closed with absorbable suture. The subcutaneous tissue was closed. The subcuticular tissue was closed with absorbable suture. The wound was cleaned and dried and dressed appropriately. A soft cervical collar was placed appropriately. The patient was woken up by anesthesia, extubated, transferred back gently to their hospital bed and brought to the recovery room in good stable condition. The patient will be admitted to the hospital for appropriate postoperative care, medical management and monitoring. We will continue to follow them closely about the postoperative course.
[2019-03-06] MEDS: HYDROmorphone 0.5 MG/0.5 ML SYRINGE IVP PRN ×4 (15:08→15:39)
[2019-03-06] MEDS ORDERED: LACTATED RINGERS 1,000 ML IV ONE (15:17)
--- NOTE | 2019-03-06 16:46 | XR ---
Cervical spine single view. History needle placement. FINDINGS: A single lateral view was obtained. There is a needle with the tip over the disc space at C5-6. IMPRESSION: Needle localizer is at C5-6 disc.
[2019-03-06 16:47] LABS: Glucose,Whole Blood 110 mg/dL (75-99)
[2019-03-06] MEDS: SODIUM CHLORIDE 0.9% 1,000 ML IV SCH (18:07)
[2019-03-06 20:31] LABS: Glucose,Whole Blood 174 mg/dL (75-99)
[2019-03-07 02:26] VITALS: BP 100/63; PULSE 94; RESP 15; TEMP 99.1
[2019-03-07] MEDS: SODIUM CHLORIDE 0.9% 1,000 ML IV SCH (05:20)
[2019-03-07] MEDS: LACTATED RINGERS 1,000 ML IV SCH (05:21)
[2019-03-07 07:08] LABS: Glucose,Whole Blood 154 mg/dL (75-99)
[2019-03-07] MEDS ORDERED: PANTOPRAZOLE 40 MG TABLET PO SCH (07:30)
[2019-03-07] MEDS ORDERED: glipiZIDE 10 MG TAB PO SCH (07:30)
--- NOTE | 2019-03-07 08:35 | P.DS ---
Providers Expected date of discharge: 03/07/19 Attending physician: Alona Ugarte Primary care physician: Cinthia Mckenna - Discharge Diagnosis(es) (1) Radiculopathy affecting upper extremity Current Visit: Yes Status: Acute (2) Cervicalgia Current Visit: Yes Status: Acute (3) Degeneration of C5-C6 intervertebral disc Current Visit: Yes Status: Acute (4) Herniated nucleus pulposus, C5-6 Current Visit: Yes Status: Acute (5) Hypertension Current Visit: Yes Status: Acute (6) Diabetes mellitus type I Current Visit: Yes Status: Acute (7) Cervical stenosis of spinal canal Current Visit: Yes Status: Acute Hospital Course: This is a pleasant 63-year-old female who presented with C5-6 severe cervical spinal stenosis, cervical pain with upper extremity radiculopathy, C5 to 6 degenerative disc disease and disc protrusion with herniation who failed outpatient conservative therapy. She was admitted for a C5-6 anterior cervical decompression and fusion. Patient does not speak fluent Arabic. She communicates well in Portuguese. Most of the history was obtained through her and son. The patient tolerated the procedure well and did well postoperatively. She had some difficulty sleeping last night due to sneezing. She is not currently complaining of any cervical pain. She has adequate range of motion of the bilateral upper extremities without difficulty. She feels her soft cervical collar irritates her neck. Condition on day of discharge stable. Patient will be discharged home. Patient was cleared preoperatively for surgery by Dr. Mckenna. Patient currently denies any nausea, vomiting, fever, or chills. Patient is eating without difficulty. Patient may shower Tegaderm dressing intact. Patient may remove Tegaderm dressing in 3 days and shower without a dressing at that time. Patient should keep Steri-Strips intact and allow them to fall off naturally. Patient should refrain from driving until at least after their first follow-up appointment in the office. Patient should avoid excessive neck flexion, extension, rotation, and lateral sidebending; no overhead lifting; no lifting greater than 10 pounds. She may resume her previously prescribed home medications while avoiding anti- inflammatories including Advil over the next 6 weeks postoperatively. She is given a prescription for [place] 5 mg/325 mg 1 tab every 6 hours, dispensed #12 as needed for pain. MAPS has been reviewed. An "Opiod Start Talking Form" has been signed. This prescription has been sent to the pharmacy. Patient has a medical history which includes hypertension and diabetes type 1. Physical Exam on day of discharge: Patient is awake, alert, and oriented 3 Vital signs stable Good chest excursion with deep inspiration and expiration Abdomen soft nontender No signs or symptoms of DVT; no calf pain Full range of motion of the cervical spine with adequate flexion, extension, and bilateral rotation Body Mechanic Apprentice strength, thumb strength, interosseous strength, biceps strength, triceps strength, and shoulder strength positive sustained bilaterally Soft cervical collar is removed during physical examination Incision is clean, dry, and intact; no erythema, purulence, or signs of infection Tegaderm dressing and non-stick Telfa intact Procedures: C5-6 anterior cervical decompression fusion Patient Condition at Discharge: Stable Plan - Discharge Summary Discharge Rx Participant: Yes New Discharge Prescriptions: New HYDROcodone/APAP 5-325MG [[place] 5] 1 each PO Q6HR PRN #12 tab PRN Reason: Severe Pain No Action glipiZIDE [Glucotrol] 10 mg PO AC-BRKFST Losartan [Cozaar] 50 mg PO DAILY Multivitamins, Thera [Multivitamin (formulary)] 1 tab PO DAILY Ibuprofen [Advil] 200 mg PO Q6HR PRN PRN Reason: Pain carBAMazepine [TEGretol] 200 mg PO DAILY Pantoprazole Sodium [Protonix] 40 mg PO DAILY Diphenoxylate HCl/Atropine [Lomotil 2.5-0.025 mg Tablet] 1 tab PO DAILY Discharge Medication List Losartan [Cozaar] 50 mg PO DAILY 09/07/16 [History] glipiZIDE [Glucotrol] 10 mg PO AC-BRKFST 09/07/16 [History] Diphenoxylate HCl/Atropine [Lomotil 2.5-0.025 mg Tablet] 1 tab PO DAILY 03/01/19 [History] Ibuprofen [Advil] 200 mg PO Q6HR PRN 03/01/19 [History] Multivitamins, Thera [Multivitamin (formulary)] 1 tab PO DAILY 03/01/19 [History] Pantoprazole Sodium [Protonix] 40 mg PO DAILY 03/01/19 [History] carBAMazepine [TEGretol] 200 mg PO DAILY 03/01/19 [History] HYDROcodone/APAP 5-325MG [[place] 5] 1 each PO Q6HR PRN #12 tab 03/06/19 [Rx] Follow up Appointment(s)/Referral(s): Alona Ugarte DO [Doctor of Osteopathic Medicine] - 2 Weeks Activity/Diet/Wound Care/Special Instructions: Keep site clean. May shower with waterproof Tegaderm intact. Do not soak in a tub. After 72 hours postoperatively, patient May remove dressing and then may shower with area uncovered. Leave Steri-Strips intact and allow them to fray off on their own. May ambulate as tolerated. Avoid heavy or rigorous activity. No repetitive bending twisting or lifting. No overhead work. Discharge Disposition: HOME SELF-CARE
[2019-03-07] MEDS ORDERED: LOSARTAN 50 MG TAB PO SCH (09:00)
[2019-03-07] MEDS ORDERED: MULTIVITAMINS, THERA 1 EACH TAB PO SCH (09:00)
[2019-03-07] MEDS ORDERED: DIPHENOX-ATROP 2.5-0.025 MG 1 EACH TAB PO SCH (09:00)
[2019-03-07] MEDS ORDERED: carBAMazepine 200 MG TAB PO SCH (09:00)
== END 2019-03-07 11:49 | disposition home or self-care (01) ==
LOC: OR 11:59 → 4SSUR 15:01 → OR 03-07 11:49
PROVIDERS: ATTEND Orthopaedic Surgery Orthopaedic Surgery of the Spine
DX: M48.02 Spinal stenosis, cervical region (principal); M50.122 Cervical disc disorder at C5-C6 level with radiculopathy; M50.11 Cervical disc disorder with radiculopathy, high cervical region; M25.78 Osteophyte, vertebrae; I10 Essential (primary) hypertension; E10.9 Type 1 diabetes mellitus without complications; Z90.49 Acquired absence of other specified parts of digestive tract; Z90.710 Acquired absence of both cervix and uterus; G51.0 Bell's palsy; E66.01 Morbid (severe) obesity due to excess calories; Z68.39 Body mass index [BMI] 39.0-39.9, adult; Z79.84 Long term (current) use of oral hypoglycemic drugs; Z79.899 Other long term (current) drug therapy
CPT/HCPCS: 72020; 22551; C1713; J2250; J0690 ×2; J2405; J2001; J3010; J1100; J2370; J0330; J2704; J1170; 86850; 86900; 86901

== ENCOUNTER 2019-04-11 06:50 | Day surgery (SDC) | payer MEDICARE, OTHER ==
[2019-04-07 11:01] VITALS: BMI 45.3
[~2019-04-11 06:50] MED LIST changes: -BACITRACIN 50,000 UNIT, POLYMYXIN B 500,000 UNIT in SODIUM CHLORIDE 0.9% IRRIGATIO 1,00... IRRIGATION ONE; -DEXAMETHASONE SOD PHOSPHATE 10 MG/ML 1 ML VIAL IV ONE; +LACTATED RINGERS 1,000 ML IV SCH; -MIDAZOLAM 2 MG/2 ML VIAL IV PRN; -ONDANSETRON 4 MG/2 ML VIAL IVP ONE
[2019-04-11 07:55] LABS: Glucose,Whole Blood 78 mg/dL (75-99)
[2019-04-11 07:57] VITALS: TEMP 97.5
[2019-04-11] MEDS ORDERED: LIDOCAINE 1% INJ 10MG/ML (20 ML MDV) ONE (08:30)
[2019-04-11] MEDS ORDERED: PROPOFOL 10 MG/ML 20 ML VIAL IV ONE (08:30)
[2019-04-11 09:14] VITALS: BP 105/72; PULSE 95; RESP 18
--- NOTE | 2019-04-11 09:17 | P.PCN ---
Date of Procedure: 04/11/19 Description of Procedure: BRIEF HISTORY: 63-year-old female who presents for outpatient EGD for evaluation of oral erythematous candidiasis and change in bowel habits/diarrhea. The patient denies any current dysphagia or odynophagia she has been treated with Diflucan and is on PPI therapy at this time. PROCEDURE PERFORMED: Esophagogastroduodenoscopy with biopsy. PREOPERATIVE DIAGNOSIS: Oral erythematous candidiasis, Barby of the esophagus, diarrhea, altered bowel habits. ESTIMATED BLOOD LOSS: Minimal. IV sedation per anesthesia. PROCEDURE: After informed consent was obtained, the patient was brought into the endoscopy unit. IV sedation was administered by Anesthesia under continuous monitoring. Initially the Olympus GIF-190 video endoscope was inserted into the mouth. Esophagus intubated without any difficulty. It was gradually advanced into the stomach and duodenum and carefully examined. The bulb and the second part of the duodenum appeared normal, with biopsies taken to rule out celiac sprue. The scope at this time was withdrawn to the stomach, adequately insufflated with air, and upon careful examination, mucosa of the antrum, body, cardia and the fundus appeared normal, except for mild punctate erythema and minimal nodularity in the antrum and body suggestive of mild gastritis with biopsies of the antrum and body taken. The scope was then withdrawn into the esophagus. The GE junction was located at 41 cm from the incisors, with a small 1 cm hiatal hernia noted and biopsies of the GE junction taken . The esophagus appeared normal., With biopsies of the midesophagus taken in the setting of suspected esophageal candidiasis There were no erosions or ulcerations seen and the patient tolerated the procedure well. IMPRESSION: 1. Mild gastritis antrum and body, biopsied . 2. Biopsies of the duodenum, GE junction and midesophagus. 3. Small hiatal hernia. RECOMMENDATIONS: The findings of this examination were discussed with the patient and her using an inventory worker service. Okay to resume diet and medications. Await patho logy from biopsies. Follow up with gastroenterology as previously scheduled
== END 2019-04-11 09:30 | disposition home or self-care (01) ==
LOC: ORWHC2ENDO 06:50
PROVIDERS: ATTEND Internal Medicine
DX: K29.70 Gastritis, unspecified, without bleeding (principal); B96.81 Helicobacter pylori [H. pylori] as the cause of diseases classified elsewhere; K44.9 Diaphragmatic hernia without obstruction or gangrene; B37.81 Candidal esophagitis; I10 Essential (primary) hypertension; E66.01 Morbid (severe) obesity due to excess calories; R19.7 Diarrhea, unspecified; Z90.710 Acquired absence of both cervix and uterus; Z98.890 Other specified postprocedural states; Z79.84 Long term (current) use of oral hypoglycemic drugs; Z79.899 Other long term (current) drug therapy; Z83.3 Family history of diabetes mellitus; Z82.49 Family history of ischemic heart disease and other diseases of the circulatory system; Z68.42 Body mass index [BMI] 45.0-49.9, adult
CPT/HCPCS: 88305; 88342; 43239; J2001; J2704

== ENCOUNTER 2019-06-12 13:49 | Emergency (ER) | payer MEDICARE, OTHER ==
[2019-06-12 14:42] VITALS: BP 133/80; PULSE 71; RESP 18; TEMP 97.9
--- NOTE | 2019-06-12 15:36 | ED ---
General Adult HPI - General Chief complaint: Eye Problems Stated complaint: Pain in Eyes Time Seen by Provider: 06/12/19 15:06 Source: family, RN notes reviewed Mode of arrival: wheelchair Limitations: language barrier - History of Present Illness Initial comments: 63-year-old female with a past medical history of diabetes mellitus, hypertension presents to the emergency department for a chief complaint of bilat eye pain. This has been ongoing for 4 or 5 years. States that her eyes are itchy and dry. States she has a history of elevated pressures in her eyes and uses timolol drops. States that she usually sees Dr. Ferguson for this. Denies any visual changes. States that she is also here with her who has similar complaints. States she thought she could see an eye doctor through the emergency department. She denies any pain with movement of the eyes. Denies any fevers or chills.Patient has no other complaints at this time including shortness of breath, chest pain, abdominal pain, nausea or vomiting, headache, or visual changes. - Related Data Home Medications Medication Instructions Recorded Confirmed Losartan [Cozaar] 50 mg PO DAILY 09/07/16 04/11/19 glipiZIDE [Glucotrol] 10 mg PO AC-BRKFST 09/07/16 04/11/19 carBAMazepine [TEGretol] 200 mg PO DAILY 03/01/19 04/11/19 Omeprazole 20 mg PO BID 04/07/19 04/11/19 Vitamin C(Dose Unknown) 1 tab PO DAILY 04/07/19 04/11/19 Vitamin D(Dose Unknown) 1 tab PO DAILY 04/07/19 04/11/19 Zinc(Dose Unknown) 1 tab PO DAILY 04/07/19 04/11/19 Allergies Allergy/AdvReac Type Severity Reaction Status Date / Time No Known Allergies Allergy Verified 06/12/19 14:42 Review of Systems ROS Statement: Those systems with pertinent positive or pertinent negative responses have been documented in the HPI. ROS Other: All systems not noted in ROS Statement are negative. Past Medical History Past Medical History: Diabetes Mellitus, Hypertension, Osteoarthritis (OA) Additional Past Medical History / Comment(s): occ coughing, 'virus in the stomach", "burning sensation in stomach and rare acid refux but like spicy foods", diarrhea, bad disk in back, states blurred vision History of Any Multi-Drug Resistant Organisms: None Reported Past Surgical History: Back Surgery, Section, Cholecystectomy, Hysterectomy Additional Past Surgical History / Comment(s): C/s x 3, disk surgery in neck, EGD, colonoscopy, "eye surgery for pressure" Past Anesthesia/Blood Transfusion Reactions: Motion Sickness Past Psychological History: No Psychological Hx Reported Smoking Status: Never smoker Past Alcohol Use History: None Reported Past Drug Use History: None Reported - Past Family History Mother Family Medical History: No Reported History General Exam Limitations: language barrier General appearance: alert, in no apparent distress Head exam: Present: atraumatic, normocephalic, normal inspection Eye exam: Present: normal appearance, PERRL, EOMI. Absent: scleral icterus, conjunctival injection, periorbital swelling Expanded Eyelids: Normal Inspection: Bilateral Pupils: Regular, Round: Bilateral Sclera/Conjunctival: Normal Inspection: Bilateral IOP (R) in mmH IOP (L) in mmH IOP measured with: Tonopen ENT exam: Present: normal exam, mucous membranes moist Neck exam: Present: normal inspection, full ROM. Absent: tenderness, meningismus, lymphadenopathy Respiratory exam: Present: normal lung sounds bilaterally. Absent: respiratory distress, wheezes, rales, rhonchi, stridor Cardiovascular Exam: Present: regular rate, normal rhythm, normal heart sounds. Absent: systolic murmur, diastolic murmur, rubs, gallop, clicks Course Vital Signs 06/12/19 14:38 Temperature 97.9 F Pulse Rate 71 Respiratory 18 Rate Blood Pressure 133/80 O2 Sat by Pulse 95 Oximetry Medical Decision Making - Medical Decision Making patient presents for chronic eye pain and irritation. Patient uses timolol and all pad iodine drops for this. Usually sees Dr. Ferguson. Patient presents here because she thought she could see an eye doctor through the emergency department. She denies any worsening symptoms acutely. She denies visual changes. IOP is within normal limits bilaterally and is 21 and 22 . we did attempt to do visual acuity but given that patient cannot read Bhutanese this was unsuccessful. I discussed the patient denies this is a chronic problem she should follow up with Dr. Ferguson by calling for an appointment today. She does agree with this.she will return if she has any worsening symptoms. Disposition Clinical Impression: Eye irritation Disposition: HOME SELF-CARE Condition: Good Instructions (If sedation given, give patient instructions): Eye Pain (ED) Additional Instructions: please continue to use your drops given to you by Dr Ferguson. Return to the emergency department if you have any worsening symptoms or visual changes. Is patient prescribed a controlled substance at d/c from ED?: No Referrals: Cinthia Mckenna MD [Primary Care Provider] - 1-2 days Akanksha Ferguson MD [STAFF PHYSICIAN] - 1-2 days Time of Disposition: 15:35
== END 2019-06-12 16:00 | disposition home or self-care (01) ==
LOC: EC 13:49
DX: H57.89 Other specified disorders of eye and adnexa (principal); G89.29 Other chronic pain; H57.13 Ocular pain, bilateral; E11.9 Type 2 diabetes mellitus without complications; I10 Essential (primary) hypertension; Z79.84 Long term (current) use of oral hypoglycemic drugs; Z79.899 Other long term (current) drug therapy
CPT/HCPCS: 99283

== ENCOUNTER → 2020-01-15 | Outpatient (CLI) | payer MEDICARE, OTHER ==
[2020-01-15 13:39] LABS: African American GFR (CKD) >90 (>60 ml/min/1.73 sqM); Blood Urea Nitrogen 14 mg/dL (7-17); Non-African American GFR(CKD) >90 (>60 ml/min/1.73 sqM)
--- NOTE | 2020-01-15 15:25 | CT ---
EXAMINATION TYPE: CT soft tissue neck w con DATE OF EXAM: 01/15/2020 COMPARISON: None HISTORY: Glossitis CT DLP: 599 mGycm CONTRAST: CT scan of the neck is performed with IV Contrast, patient injected with 100 mL of Isovue 300. Contrast enhanced CT of the neck was performed from the skull base through the lung apices. AIRWAY: There is thickening of the tongue with more focal component seen posteriorly and to the lef t of midline. The findings may reflect glossitis. Clinical correlation and direct visualization is ad vised. The airway is patent. The remaining supraglottic, glottic, and subglottic portions of the airw ay appear patent and free of mass. SALIVARY GLANDS: The submandibular and parotid glands are free of mass or inflammatory process. THYROID GLAND: No nodules or masses seen. LYMPH NODES: No adenopathy seen greater than 1cm. LUNG APICES: No nodule or mass is seen. OTHER: Vascular structures are patent. No significant degenerative change of the cervical spine. N o abscess seen. IMPRESSION: There is thickening of the tongue with more focal component seen posteriorly and to the left of midl ine. The findings may reflect glossitis. Clinical correlation and direct visualization is advised.
== END | disposition home or self-care (01) ==
LOC: RADCTMAIN 12:47
PROVIDERS: ATTEND Otolaryngology
DX: K14.8 Other diseases of tongue (principal); H92.03 Otalgia, bilateral
CPT/HCPCS: 82565; 84520; 70491; 36415; Q9967

== ENCOUNTER → 2020-03-04 | Outpatient (CLI) | payer MEDICARE, OTHER | END | disposition home or self-care (01) | LOC: LABWHC1 10:02 | PROVIDERS: ATTEND Otolaryngology | DX: U07.1 COVID-19 (principal) | CPT/HCPCS: U0003; C9803 ==

== ENCOUNTER 2020-04-01 09:44 | Day surgery (SDC) | payer MEDICARE, OTHER ==
[2020-03-28 13:04] VITALS: BMI 45.3
--- NOTE | 2020-03-31 18:19 | HP ---
HISTORY AND PHYSICAL CHIEF COMPLAINT: Left base of tongue mass. HISTORY OF PRESENT ILLNESS: This patient is a 64-year-old female who was originally seen in my office complaining of having soreness of her tongue and occasionally her tongue sometimes bleeds. This has been going on for the past 4-6 months. She denied any feeling of a lump in her throat, but admitted to occasional coughing. The patient is originally from [place] and is a poor historian and therefore most information is obtained from her and from her son who lives in [place]. At the time the patient was seen in my office originally, clinical examination, which included an indirect laryngoscopy, did not reveal any suspicious lesions of the oropharynx, hypopharynx, or of the base of tongue. However, a CT scan was obtained of the neck and this showed evidence of significant asymmetry of the base of tongue, suggesting a possible left base of tongue mass. Because of this finding, it was recommended the patient undergo a suspension microlaryngoscopy with biopsies of the left base of tongue under general anesthesia. PAST MEDICAL HISTORY: Reveals patient has no known allergies. MEDICATIONS: Her current medications include glipizide, Tegretol, and losartan. REVIEW OF SYSTEMS: Reveals cardiovascular system is positive for hypertension. Respiratory system is negative. Metabolic system is positive for type 2 diabetes mellitus. The remainder of the review of systems is unremarkable. PREVIOUS SURGERIES: Include , colonoscopy, hysterectomy, cholecystectomy, left knee replacement, and a cervical fusion. PHYSICAL EXAMINATION: This patient is a 64-year-old female who was alert and cooperative. HEENT examination: Patient is normocephalic. Tympanic membranes are normal. Middle ear spaces are free of any fluid or infection. Pupils equal, round, react to light and accommodation. Extraocular movements within normal limits. Intranasal examination reveals moderate to severe septal deviation with compensatory hypertrophy of inferior turbinates. Moderate amount of mucus on the mucous membrane draining down posterior pharynx on examination of the oropharynx. Cranial nerves 2 through 12 and the remainder of the head and neck exam were essentially unremarkable. CHEST/CARDIOVASCULAR: Both lung forte are clear to percussion and auscultation. The patient is in regular sinus rhythm. S1, S2 are present without evidence of any murmurs, S3s or S4s. Peripheral pulses are bilaterally symmetrical. ABDOMEN: There is no evident masses, megaly or tenderness. The abdomen is soft. SKIN: Unremarkable. MUSCULOSKELETAL/NEUROLOGIC: Unremarkable. PELVIC/RECTAL examination: The pelvic and rectal exam is deferred at this time because the patient has this done on a regular basis at her family physician's office. The remainder of physical exam is unremarkable. IMPRESSION: Left base of tongue mass. PLAN: The patient is scheduled to undergo a suspension microlaryngoscopy with biopsy of left base of tongue mass under general anesthesia. Attention RNs in the pre-surgical area: I have ordered for this patient to receive 3 g of Ancef/Kefzol to be given once an intravenous line has been established. If the pharmacy department pre-surgical prophylactic antibiotic to the pre-surgical area for this patient, that order should be cancelled and the medication should be returned to the pharmacy department. Make sure the patient's account is credited appropriately. In addition, I have ordered for this patient to receive 1000 mg of Ofirmev IV, to be given once an intravenous line has been established. I have discussed the risks, benefits and alternative therapies for the above-mentioned procedure and for both sedation/analgesia as well as necessary blood product administration, if indicated, as they pertain to this patient. The patient has indicated his or her understanding and acceptance of the risks and procedures discussed. MMODL / IJN: [id number] /
[~2020-04-01 09:44] MED LIST changes: +DEXAMETHASONE SOD PHOSPHATE 10 MG/ML 1 ML VIAL IV ONE; +HYDROmorphone 0.5 MG/0.5 ML SYRINGE IVP PRN; -LIDOCAINE 1% 20 ML VIAL (10MG/ML) FOR IV START INTRADERMA PRN; +ONDANSETRON 4 MG/2 ML VIAL IVP ONE; +Pre Op ABX Message 1 EACH MISC MISCELLANE ONE
[2020-04-01] MEDS ORDERED: LIDOCAINE 1% (10MG/ML) FOR IV START INTRADERMA ONE (11:35)
[2020-04-01 11:42] LABS: Glucose,Whole Blood 105 mg/dL (75-99)
[2020-04-01] MEDS ORDERED: ACETAMINOPHEN IV (For NPO) 1,000 MG in EMPTY BAG 1 BAG IVPB ONE (12:15)
[2020-04-01] MEDS ORDERED: ceFAZolin 3 GM in SODIUM CHLORIDE 0.9% 100 ML IVPB ONE (12:15)
[2020-04-01] MEDS ORDERED: DEXAMETHASONE SOD PHOSPHATE 10 MG/ML 1 ML VIAL ONE (13:14)
[2020-04-01] MEDS ORDERED: SUCCINYLCHOLINE CHLORIDE 100 MG/5 ML SYR IV ONE (13:14)
[2020-04-01] MEDS ORDERED: MIDAZOLAM 2 MG/2 ML VIAL ONE (13:14)
[2020-04-01] MEDS ORDERED: fentaNYL (PF) 50 MCG/ML 2 ML AMP ONE (13:14)
[2020-04-01] MEDS ORDERED: PROPOFOL 10 MG/ML 20 ML VIAL IV ONE (13:14)
[2020-04-01] MEDS ORDERED: ceFAZolin 1,000 MG VIAL IVPB ONE (13:47)
[2020-04-01] MEDS ORDERED: LACTATED RINGERS 1,000 ML IV ONE (14:03)
[2020-04-01 14:30] VITALS: TEMP 96.9
[2020-04-01 14:34] LABS: Glucose,Whole Blood 145 mg/dL (75-99)
[2020-04-01 15:50] VITALS: BP 131/79; PULSE 81; RESP 18
--- NOTE | 2020-04-01 17:51 | OP ---
OPERATIVE REPORT DATE OF SURGERY: 04/01/2020 PREOPERATIVE DIAGNOSIS: Left base of tongue mass. POSTOPERATIVE DIAGNOSIS: Left base of tongue mass, final pathology pending. ANESTHESIA: General. OPERATIVE PROCEDURE: Suspension microlaryngoscopy with multiple blind biopsies of the left base of tongue. ESTIMATED BLOOD LOSS: Less than 10 mL. OPERATIVE PROCEDURE DESCRIPTION: The patient was placed on the operating table in supine position, and after uneventful induction and endotracheal intubation, satisfactory general anesthesia was obtained. Next, the patient was draped in the usual and customary fashion, following which the teeth guard was put in place and the laryngoscope was introduced into the patient's oropharynx in the usual fashion. The entire hypopharynx, including the left and right piriform sinus and the valleculae, were inspected and found to be free of any suspicious tissue. Examination/comparison of the left versus the right base of tongue revealed that there appeared to be some hypertrophy of the soft tissue on the left base of tongue, possibly lymphoid tissue. Therefore multiple biopsies were taken and sent for cultures of bacteria and fungus as well as multiple biopsies sent for permanent sectioning for pathology in formalin. Next the tip of the laryngoscope was introduced into the laryngeal introitus. Following this, the Lewy apparatus was attached to the handle of the laryngoscope and the laryngoscope was then suspended on the patient's chest with direct visualization of the patient's true vocal cords. Using the Zeiss operating microscope, inspection failed to reveal any evidence of any suspicious lesions or nodules, polyps, etc. of the larynx proper. Both vocal cords appeared to be free of any nodules, leukoplakia, etc. In addition to this, the posterior cricoid area was inspected as well as the arytenoids, and these were found to be free of any suspicious lesions. Again, the valleculae had been seen to be free of any suspicious lesions. The patient was given 10 mg of Decadron intraoperatively to reduce any postoperative edema. At this point the procedure was terminated. There were no intraoperative complications. The patient tolerated the procedure well. Final pathologies and cultures are pending. The patient was returned to the recovery room in satisfactory condition. It is to be noted that the patient was given 3 grams of Ancef as a prophylaxis approximately one half hour to 45 minutes prior to our procedure because she has had a left knee replacement. MMODL / IJN: [id number] /
== END 2020-04-01 15:57 | disposition home or self-care (01) ==
LOC: OR 09:44
PROVIDERS: ATTEND Otolaryngology
DX: J35.1 Hypertrophy of tonsils (principal); E11.9 Type 2 diabetes mellitus without complications; I10 Essential (primary) hypertension; E78.5 Hyperlipidemia, unspecified; G50.0 Trigeminal neuralgia; Z79.84 Long term (current) use of oral hypoglycemic drugs; Z79.899 Other long term (current) drug therapy; Z98.890 Other specified postprocedural states; Z90.710 Acquired absence of both cervix and uterus; Z90.49 Acquired absence of other specified parts of digestive tract; Z96.652 Presence of left artificial knee joint; Z98.1 Arthrodesis status; Z79.891 Long term (current) use of opiate analgesic
CPT/HCPCS: 88305; 87070; 87205; 87075; 87102; 31536; J2250; J1100; J0690 ×2; J2405; J3010; J0131; J0330; J2704

== ENCOUNTER 2020-12-27 06:07 | Day surgery (SDC) | payer MEDICARE, OTHER ==
[2020-12-26 10:52] VITALS: BMI 47.0
[~2020-12-27 06:07] MED LIST changes: +ALPRAZolam 0.25 MG TAB PO PRN; +ALPRAZolam 0.5 MG TAB PO PRN; +ASPIRIN 325 MG TAB PO STA; +ATORVASTATIN 80 MG TAB PO STA; -DEXAMETHASONE SOD PHOSPHATE 10 MG/ML 1 ML VIAL IV ONE; +HEPARIN SODIUM,PORCINE 10,000 UNIT in SODIUM CHLORIDE 0.9% 1,000 ML IRRIGATION PRN; +HEPARIN SODIUM,PORCINE 2,500 UNIT in SODIUM CHLORIDE 0.9% 250 ML IRRIGATION PRN; -HYDROmorphone 0.5 MG/0.5 ML SYRINGE IVP PRN; -LACTATED RINGERS 1,000 ML IV SCH; +NITROGLYCERIN SL TABS 0.4 MG TAB SUBLINGUAL PRN; -ONDANSETRON 4 MG/2 ML VIAL IVP ONE; -Pre Op ABX Message 1 EACH MISC MISCELLANE ONE; +SODIUM CHLORIDE 0.9% 1,000 ML in EMPTY BAG 1 BAG IV ONE
[2020-12-27] MEDS ORDERED: SODIUM CHLORIDE 0.9% 1,000 ML IV ONE (06:13)
[2020-12-27 06:57] LABS: Glucose,Whole Blood 111 mg/dL (75-99)
[2020-12-27] MEDS ORDERED: LIDOCAINE 1% INJ 10MG/ML (20 ML MDV) ONE (07:17)
[2020-12-27] MEDS ORDERED: VERAPAMIL 2.5 MG/ML 2 ML AMP ONE (07:17)
[2020-12-27 07:21] LABS: Basophils % (A) 1 %; Eosinophils # (A) 0.3 k/uL (0-0.7); Eosinophils % (A) 3 %; HGB 12.8 gm/dL (11.4-16.0); Lymphocytes % (A) 24 %; MCH 31.1 pg (25.0-35.0); MCHC 33.7 g/dL (31.0-37.0); Monocytes # (A) 0.4 k/uL (0-1.0); Monocytes % (A) 4 %; Neutrophils # (A) 5.5 k/uL (1.3-7.7); Neutrophils % (A) 66 %; Platelet Count 247 k/uL (150-450); RBC 4.13 m/uL (3.80-5.40); RDW 13.5 % (11.5-15.5); WBC 8.3 k/uL (3.8-10.6)
[2020-12-27] MEDS ORDERED: fentaNYL (PF) 50 MCG/ML 2 ML AMP ONE (07:35)
[2020-12-27] MEDS ORDERED: fentaNYL (PF) 50 MCG/ML 2 ML AMP IVP ONE (07:39)
[2020-12-27] MEDS ORDERED: LIDOCAINE 1% INJ 10MG/ML (20 ML MDV) SQ ONE (07:41)
[2020-12-27] MEDS ORDERED: MIDAZOLAM 2 MG/2 ML VIAL IVP ONE (07:45)
[2020-12-27] MEDS ORDERED: VERAPAMIL SYRINGE (5 MG/10 ML) INTRAARTER ONE (07:53)
[2020-12-27] MEDS ORDERED: HEPARIN SODIUM 1,000 UN/ML (10ML VL) IVP ONE (07:59)
[2020-12-27] MEDS ORDERED: HEPARIN SODIUM 1,000 UN/ML (10ML VL) ONE (08:00)
[2020-12-27 08:07] LABS: African American GFR (CKD) >90 (>60 ml/min/1.73 sqM); Anion Gap 5 mmol/L; Blood Urea Nitrogen 18 mg/dL (7-17); Calcium 9.4 mg/dL (8.4-10.2); Carbon Dioxide 31 mmol/L (22-30); Chloride 102 mmol/L (98-107); Glucose 123 mg/dL (74-99); Non-African American GFR(CKD) 85 (>60 ml/min/1.73 sqM); Potassium 4.7 mmol/L (3.5-5.1); Sodium 138 mmol/L (137-145)
[2020-12-27] MEDS ORDERED: IOPAMIDOL-370 125ML BTL INJ ONE (08:07)
[2020-12-27] MEDS ORDERED: RX INFO: IV CONTRAST WAS GIVEN 1 EACH MISC MISCELLANE PRN (08:19)
[2020-12-27] MEDS ORDERED: SODIUM CHLORIDE 0.9% 1,000 ML IV SCH (08:30)
[2020-12-27 08:34] VITALS: RESP 16
[2020-12-27] MEDS ORDERED: NON FORMULARY DRUG (Vitamin B Complex [Vitamin B Complex] 1 EACH Capsule) PO SCH (09:00)
--- NOTE | 2020-12-27 11:51 | LTR ---
DATE OF SERVICE: 12/27/[address] Mckenna: I had the pleasure of performing cardiac catheterization on Mrs. Solano at [facility] on December 27 and a full copy of procedure note will be forwarded to you. In brief, she was found to have no evidence of high-grade stenosis and based on those findings, I recommended continued medical therapy with aggressive coronary risk modifications that have been initiated. Please feel free to call for any questions. Sincerely, CAROLYN / ALICIA: [id number] /
--- NOTE | 2020-12-27 11:51 | CC ---
CARDIAC CATHETERIZATION REPORT Mrs. Solano is a 65-year-old female with known history of hypertension, hyperlipidemia, and diabetes mellitus who has been complaining of progressive dyspnea on exertion. She underwent myocardial perfusion imaging that revealed evidence of inducible ischemia involving the anterior wall. In view of that, recommendation was made regarding cardiac catheterization. The procedure as well as the risks and the complications were discussed with the patient who is in full understanding and agreement. PROCEDURE DETAILS: Patient was brought to the labeling specialist in a fasting semi-sedated state after receiving fentanyl and Benadryl and achieving moderate conscious sedated state. Using Xylocaine anesthesia and Seldinger technique, a 6-Nigerien sheath was introduced in the right radial artery. Selective right and left coronary angiography performed using 5-Nigerien, 3.5 bend right and left Judkin's catheter. Multiple views of the coronary artery including hemiaxial views obtained. Following that, a 5-Nigerien tight pigtail catheter introduced into the left ventricle and pressures were calculated. Following that, catheter and sheath were removed. Hemostasis was obtained with deployment of a TR band. There was no immediate complication. The patient was returned to her room in stable condition. Of note, the patient received a total of 5000 units of intravenous heparin. FINDINGS: LEFT MAIN: This is a large-sized vessel, bifurcating into left circumflex, left anterior descending artery, left main coronary artery has no evidence of high-grade stenosis. LEFT ANTERIOR DESCENDING CORONARY ARTERY: This is a large-sized vessel reaching towards the apex with a wraparound apex segment giving rise to a small diagonal branch. The left anterior descending artery as well as branches have no evidence of obstructive coronary artery disease. LEFT CIRCUMFLEX: This is a large dominant vessel giving rise to a large obtuse marginal branch in mid segment, distally bifurcating into PDA and posterolateral segment and branches. The left circumflex as well as branches have no evidence of obstructive coronary artery disease. RIGHT CORONARY ARTERY: This is a small nondominant vessel giving rise to an acute marginal branch. Following that, the vessel is small in caliber. There is no evidence of high-grade stenosis. LEFT VENTRICULOGRAM: Left ventriculogram was not performed. HEMODYNAMICS: There was no gradient across the aortic valve. The left ventricular end-diastolic pressure was 10-12 mmHg. CONCLUSION: 1. Normal coronary arteries. 2. Left dominance. RECOMMENDATION: In view of findings and anatomy, I recommend continued medical therapy with aggressive coronary risk modifications that have been initiated. Those findings and recommendations were discussed with the patient and her family who are in full understanding and agreement. Duration of sedation is 28 minutes. MMJAMARCUSL / NADEENN: [id number] /
[2020-12-27 15:20] VITALS: BP 141/74; PULSE 78
[2020-12-27] MEDS ORDERED: PRAVASTATIN SODIUM 20 MG TAB PO SCH (21:00)
[2020-12-27] MEDS ORDERED: carBAMazepine 200 MG TAB PO SCH (21:00)
[2020-12-28] MEDS ORDERED: glipiZIDE 10 MG TAB PO SCH (07:30)
[2020-12-28] MEDS ORDERED: VITAMIN E (DL,TOCOPHERYL ACET) 400 UNIT (180 MG) CAP PO SCH (09:00)
[2020-12-28] MEDS ORDERED: LOSARTAN 50 MG TAB PO SCH (09:00)
[2020-12-28] MEDS ORDERED: ASPIRIN 81 MG PO SCH (09:00)
== END 2020-12-27 13:02 | disposition home or self-care (01) ==
LOC: CATHCVL 06:07
PROVIDERS: ATTEND Internal Medicine Interventional Cardiology
DX: R06.00 Dyspnea, unspecified (principal); I10 Essential (primary) hypertension; R94.39 Abnormal result of other cardiovascular function study; E78.2 Mixed hyperlipidemia; E11.9 Type 2 diabetes mellitus without complications; E78.00 Pure hypercholesterolemia, unspecified; Z98.1 Arthrodesis status; Z90.710 Acquired absence of both cervix and uterus; Z96.659 Presence of unspecified artificial knee joint; Z90.49 Acquired absence of other specified parts of digestive tract; Z87.891 Personal history of nicotine dependence; Z79.84 Long term (current) use of oral hypoglycemic drugs; Z79.82 Long term (current) use of aspirin; Z79.899 Other long term (current) drug therapy
CPT/HCPCS: 93458; 80048; 85025; C1894; C1769; J2250; J2001; J3010; J1644; Q9967

== ENCOUNTER 2023-03-23 12:29 | Day surgery (SDC) | payer MEDICARE, OTHER ==
[~2023-03-23 12:29] MED LIST changes: -ALPRAZolam 0.25 MG TAB PO PRN; -ALPRAZolam 0.5 MG TAB PO PRN; -ASPIRIN 325 MG TAB PO STA; -ATORVASTATIN 80 MG TAB PO STA; -HEPARIN SODIUM,PORCINE 10,000 UNIT in SODIUM CHLORIDE 0.9% 1,000 ML IRRIGATION PRN; -HEPARIN SODIUM,PORCINE 2,500 UNIT in SODIUM CHLORIDE 0.9% 250 ML IRRIGATION PRN; +LACTATED RINGERS 1,000 ML IV SCH; -NITROGLYCERIN SL TABS 0.4 MG TAB SUBLINGUAL PRN; -SODIUM CHLORIDE 0.9% 1,000 ML in EMPTY BAG 1 BAG IV ONE
[2023-03-23 13:13] LABS: Glucose,Whole Blood 99 mg/dL (70-110)
[2023-03-23 13:24] VITALS: TEMP 97.6
[2023-03-23] MEDS ORDERED: methylPREDNISolone ACETATE 40 MG/ML 1 ML VIAL ONE (13:25)
[2023-03-23] MEDS ORDERED: IOPAMIDOL M200 10 ML VIAL ONE (13:25)
--- NOTE | 2023-03-23 13:34 | P.PCN ---
Date of Procedure: 03/23/23 Description of Procedure: Procedure: 1. L4-L5 Epidural steroid injection under fluoroscopic guidance, 2. Lumbar epidurogram PREOPERATIVE DIAGNOSIS: Lumbar degenerative disc disease, and Lumbar radiculopathy. POSTOPERATIVE DIAGNOSIS: Lumbar degenerative disc disease, and Lumbar radi culopathy. SURGEON: Leeanne Padron ANESTHESIA: Local with 1% lidocaine, and IV sedation: None EBL: None. Specimen removed: None Fluoroscopic image: saved to electronic medical records PROCEDURE INDICATION: The patient had history of Lumbar degenerative disc disease and Lumbar radiculopathy. Failed to conservative therapy. Presented for epidural steroid injection. PROCEDURE DESCRIPTION: The patient was seen and identified in the preoperative area. Risks, benefits, complications, and alternatives were discussed with the patient. The patient agreed to proceed with the procedure and signed the consent. Vital signs were stable. Patient was taken to the procedure area, and time out was completed. The patient was placed in the prone position on procedure table and a pillow was placed under the abdomen to reduce lumbar lordosis. The lumbosacral area was prepped and draped in the usual sterile fashion. Critical pause was taken. Vital signs were closely monitored during the procedure. Using anterior-posterior fluoroscopy, the L4-L5 interlaminar space was identified, and skin and deeper tissues were localized with 1% lidocaine. Using anterior-posterior fluoroscopy, lateral fluoroscopy, and [id number] technique, a 20 gauge 3.5 Tuohy epidural needle entered the epidural space. After negative aspiration of CSF and blood with no paresthesias, 2 ml of Vennss103 contrast dye was injected and an excellent epidurogram was seen. Again after negative aspiration of CSF and blood with no paresthesias, 7 mL of block solution was injected into the epidural space. Block solution contained 40 mg of Depo-Medrol, and 6 mL of preservative-free normal saline. Needle was withdrawn intact, skin was cleansed, and bandages were applied. COMPLICATIONS: None. DISPOSITION / PLANS: The patient was placed in a supine position and transferred to the recovery area in a stable condition for observation. Patient was discharged from the recovery room after meeting discharge criteria. Home discharge instructions given to the patient by the staff. The patient was reexamined prior to discharge. The patient will schedule a follow up in the clinic in 4 weeks.
--- NOTE | 2023-03-23 13:43 | FL ---
EXAMINATION TYPE: FL guided pain mgmt statistic DATE OF EXAM: 03/23/2023 HISTORY: Fluoroscopy time Total dose area product (DAP) in uGy*m?, mGy*cm? (or similar): 0.77618 IMPRESSION: 1. Fluoroscopy time.
[2023-03-23 14:03] VITALS: BP 99/53; PULSE 85; RESP 20
== END 2023-03-23 14:10 | disposition home or self-care (01) ==
LOC: ORPAIN 12:29
DX: M51.16 Intervertebral disc disorders with radiculopathy, lumbar region (principal); E11.9 Type 2 diabetes mellitus without complications; I10 Essential (primary) hypertension; I25.10 Atherosclerotic heart disease of native coronary artery without angina pectoris; G40.909 Epilepsy, unspecified, not intractable, without status epilepticus; E78.00 Pure hypercholesterolemia, unspecified; Z91.040 Latex allergy status; Z79.899 Other long term (current) drug therapy
CPT/HCPCS: 62323; J1030; Q9966

== ENCOUNTER → 2023-04-28 | Outpatient (CLI) | payer MEDICARE, OTHER ==
[2023-04-28 13:37] VITALS: BP 124/68; PULSE 76; RESP 15; TEMP 98.4
--- NOTE | 2023-04-28 14:57 | P.PAINPG ---
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 Pt states she experienced 50 % pain relief x 1 wks s/p procedure. Pain level is provoked at 6 /10 in intensity, constant, predominantly axial, localized in the lumbar spine, pinching in character without shooting pain. Pain is provoked by over activity. Pain is alleviated with PT x 6 wks which she is currently in, heat, medications (Ibu), repositioning and rest. Oswestry axial pain score at 22. Interventional pain procedures completed include AYESHA L4-L5 x1 Patient is currently on Ibu Patient denies any side effects of the medication(s), denies excessive drowsiness or sleepiness, denies suicidal ideation and reports that the current pain medication is helping to control the pain and improve activities of daily living. Patient denies any motor or sensory deficits. Patient denies any fever or night sweats, denies any change in the bowel movements or urination. Physical Examination: -Constitutional: Cooperative. Not in acute distress . - Neurologic: Cranial nerve II to XII intact. No focal neurological deficits. - Psychatric: Alert & oriented x 3. Matching mood & appropriate affect. Judgment and insight intact. - Musculoskeletal: Cervical spine: Muscle bulk/ tone/ strength in the bilateral upper extremities normal Vertebral body tenderness to palpation over Spurling test positive Distraction test positive Facet loading test positive TTP Thoracic spine Muscle bulk / tone/ strength in the bilateral paraspinal muscles normal Vertebral body tender to palpation over Facet loading test positive TTP Lumbar spine: Motor bulk/ tone/ strength lower extremities , thigh and legs : 5/5 Deep tendon reflexes : Normal Knee Jerk. Normal Ankle Jerk . Vertebral body tenderness to palpation over Guido Test positive Lumbar Facet Loading Test positive Straight Leg Raise: positive at 30 degrees right side/ left side Gaenslen's Test positive Sacral spine : Severe tenderness over the Sacroiliac joint: right side / left side Range of motion: Flexion of the lumbar spine <60 degrees Range of motion: Extension of the lumbar spine <20 degrees Gaenslen's Test positive right side / left side Mykel test: positive right side / left side Thigh Thrust Test positive right side / left side Sacral Thrust Test positive right side / left side Assessment and plan: Chronic LBP secondary to lumbar DDD, spondylosis with facet arthropathy without myelopathy Recommendation of BL SI injection #1. May need a series for optimal pain relief. Risks, benefits of procedure discussed and pt verbalized understanding. Admits to anticoagulant use or medical history of diabetes. Protocol for discontinuation/ continuation of medications rosetta procedure discussed. Minimal anesthesia provided, if clinically indicated, consisting of Versed and Fentanyl. All questions answered. I have spent less than 30 minutes on patient care today. Dr Ovalle was available by phone for the evaluation of this patient. The time was used to review the medical records including relevant urine studies and Prescription history (MAPs), review of the available imaging, evaluation and examination of the patient, coordination of care with the medical staff and if applicable referring physicians, as well as creation of the medical record PQRS Narrative: Smoking Status Never smoker Home Medications: Ambulatory Orders Losartan [Cozaar] 50 mg PO DAILY 09/07/16 glipiZIDE [Glucotrol] 10 mg PO AC-BRKFST 09/07/16 carBAMazepine [TEGretol] 200 mg PO BID 03/01/19 Pravastatin Sodium [Pravachol] 20 mg PO HS 12/26/20 Vitamin B Complex 1 each PO DAILY 12/26/20 Vitamin E (Dl,Tocopheryl Acet) [Vitamin E] 100 unit PO DAILY 12/26/20 Controlled Substance Measures - Controlled Substance Measures Is patient prescribed a controlled substance at discharge?: No
== END ==
LOC: PNWHC3 12:41
PROVIDERS: ATTEND Specialist
DX: M51.36 Other intervertebral disc degeneration, lumbar region (principal); M47.816 Spondylosis without myelopathy or radiculopathy, lumbar region; G89.29 Other chronic pain
CPT/HCPCS: 99211

== ENCOUNTER 2023-05-11 12:03 | Day surgery (SDC) | payer MEDICARE, OTHER ==
[2023-05-06 14:35] VITALS: BMI 41.5
[2023-05-11 13:42] LABS: Glucose,Whole Blood 107 mg/dL (70-110)
[2023-05-11 13:47] VITALS: RESP 18; TEMP 85
[2023-05-11] MEDS ORDERED: ROPIVACAINE 5MG/ML 20ML VIAL ONE (13:54)
[2023-05-11] MEDS ORDERED: methylPREDNISolone ACETATE 40 MG/ML 1 ML VIAL ONE (13:54)
[2023-05-11] MEDS ORDERED: IOPAMIDOL M200 10 ML VIAL ONE (13:54)
--- NOTE | 2023-05-11 14:04 | P.PCN ---
Date of Procedure: 05/11/23 Procedure(s) Performed: Procedure= bilateral sacroiliac joints steroid injection under fluoroscopy guidance (fluoroscopy image stored on file in the radiology Department ) Preoperative diagnosis= 1-sacroiliitis 2-lumbar degenerative disc disease 3- lumbar facet arthropathy Postoperative diagnosis=Same as preop Diagnosis . Complication = none Condition= stable Anesthesia= local anesthesia with ropivacaine 0.5% 4 ml only Indication for the procedure= patient complaining of low back pain , examination was positive for severe tenderness over the sacroiliac joints bilaterally and patient diagnosed with sacroiliitis, for this reason she was good candidate for sacroiliac joint steroid injection. Description of the procedure= procedure risk and benefits discussed with the patient, including but not limited, risk of infection and bleeding, and ALLERGIC reaction to the medication and not complete pain relief and patient agreed with the preceding patient taken to the operating room, placed in prone position or standard monitors applied to the patient then after induction of anesthesia back prepped with chlorhexidine 3 times , Then under strict sterile technique, first I did the right sacroiliac joint the which was identified under fluoroscopy guidance been local infiltration of the skin and subcu interstitial with lidocaine 1% then 22-gauge Quincke Needle advanced slowly under fluoroscopy and placed in the right sacroiliac joint needle placement confirmed with AP and oblique and lateral view, then after that Isovue 200 one mL injected which confirmed the correct needle placement with the appropriate arthrogram of the sacroiliac joint, and after appropriate needle placement confirmed and after negative aspiration, or heme , then Ropivacaine 0.5% 2 mL, and 20 mg of Depo-Medrol mixed together and injected in the right sacroiliac joint after negative aspiration patient tolerated the procedure well without any complication. Then the left sacroiliac joint steroid injection done under strict sterile technique local infiltration of the skin and subcu interstitial at the location of the left sacroiliac joint then a 22-gauge Quincke Needle advanced slowly under fluoroscopy time placed in the left sacroiliac joint, needle placement confirmed with AP and oblique and lateral view then after appropriate needle placement confirmed, with the AP and oblique and lateral then after negative aspiration Isovue 200 1 mL injected showed arthropathy of the left sacroiliac joint, and after negative aspiration 0.5% Ropivacaine 2 mL and 20 mg of Depo- Medrol injected in the left sacroiliac joint after negative aspiration patient tolerated the procedure well that any complications and she will follow up in clinic 3 weeks
[2023-05-11 14:16] VITALS: BP 128/67; PULSE 78
--- NOTE | 2023-05-11 15:06 | FL ---
Intraoperative/procedural fluoroscopic services were provided. Total fluoroscopy time is 25 seconds w ith a total of 2 submitted images to PACS. Please see the operative/procedural note for further detai ls. DAP: 0.1739 mGym2
== END 2023-05-11 14:31 | disposition home or self-care (01) ==
LOC: ORPAIN 12:03
PROVIDERS: ATTEND Specialist
DX: M46.1 Sacroiliitis, not elsewhere classified (principal); M51.36 Other intervertebral disc degeneration, lumbar region; E11.9 Type 2 diabetes mellitus without complications

== ENCOUNTER → 2023-07-05 | Outpatient (CLI) | payer MEDICARE, OTHER ==
[2023-07-05 10:02] VITALS: BP 105/70; PULSE 73; RESP 16
--- NOTE | 2023-07-05 14:22 | P.PAINPG ---
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 Pt states she experienced 0 % pain relief x 8 wks s/p procedure. Pain level is provoked at 8 /10 in intensity, constant, predominantly axial, localized in the lumbar spine, pinching in character without shooting pain. Pain is provoked by over activity. Pain is alleviated with PT x 6 wks in May 2023, heat, medications, multiple topical, use of a cane for ambulatory assistance, repositioning and rest. Oswestry axial pain score at 22. Interventional pain procedures completed include AYESHA L4-L5 x1, BL SI x1 Patient is currently on Ibu Patient denies any side effects of the medication(s), denies excessive drowsiness or sleepiness, denies suicidal ideation and reports that the current pain medication is helping to control the pain and improve activities of daily living. Patient denies any motor or sensory deficits. Patient denies any fever or night sweats, denies any change in the bowel movements or urination. Physical Examination: -Constitutional: Cooperative. Not in acute distress . - Neurologic: Cranial nerve II to XII intact. No focal neurological deficits. - Psychatric: Alert & oriented x 3. Matching mood & appropriate affect. Judgment and insight intact. - Musculoskeletal: Cervical spine: Muscle bulk/ tone/ strength in the bilateral upper extremities normal Vertebral body tenderness to palpation over Spurling test positive Distraction test positive Facet loading test positive TTP Thoracic spine Muscle bulk / tone/ strength in the bilateral paraspinal muscles normal Vertebral body tender to palpation over Facet loading test positive TTP Lumbar spine: Motor bulk/ tone/ strength lower extremities , thigh and legs : 5/5 Deep tendon reflexes : Normal Knee Jerk. Normal Ankle Jerk . Vertebral body tenderness to palpation over Guido Test positive Lumbar Facet Loading Test positive Straight Leg Raise: positive at 30 degrees right side/ left side Gaenslen's Test positive Sacral spine : Severe tenderness over the Sacroiliac joint: right side / left side Range of motion: Flexion of the lumbar spine <60 degrees Range of motion: Extension of the lumbar spine <20 degrees Gaenslen's Test positive right side / left side Mykel test: positive right side / left side Thigh Thrust Test positive right side / left side Sacral Thrust Test positive right side / left side Assessment and plan: Chronic LBP secondary to lumbar DDD, spondylosis with facet arthropathy without myelopathy Will follow up w Dr Ugarte to explore additional treatment options. All questions answered. I have spent less than 30 minutes on patient care today. Dr Ovalle was available by phone for the evaluation of this patient. The time was used to review the medical records including relevant urine studies and Prescription history (MAPs), review of the available imaging, evaluation and examination of the patient, coordination of care with the medical staff and if applicable referring physicians, as well as creation of the medical record PQRS Narrative: Smoking Status Never smoker Home Medications: Ambulatory Orders Losartan [Cozaar] 50 mg PO DAILY 09/07/16 glipiZIDE [Glucotrol] 10 mg PO AC-BRKFST 09/07/16 carBAMazepine [TEGretol] 200 mg PO BID 03/01/19 Pravastatin Sodium [Pravachol] 20 mg PO HS 12/26/20 Vitamin B Complex 1 each PO DAILY 12/26/20 Vitamin E (Dl,Tocopheryl Acet) [Vitamin E] 100 unit PO DAILY 12/26/20 Controlled Substance Measures - Controlled Substance Measures Is patient prescribed a controlled substance at discharge?: No
== END ==
LOC: PNWHC3 09:18
PROVIDERS: ATTEND Specialist
DX: M47.816 Spondylosis without myelopathy or radiculopathy, lumbar region (principal); M51.36 Other intervertebral disc degeneration, lumbar region; G89.29 Other chronic pain
CPT/HCPCS: 99211

== ENCOUNTER → 2023-07-13 | Outpatient (CLI) | payer MEDICARE, OTHER ==
[~2023-07-13] MED LIST changes: +DENOSUMAB 60 MG/ML 1 ML SYRINGE SQ NR; -LACTATED RINGERS 1,000 ML IV SCH
[2023-07-13 14:11] VITALS: BP 124/78; PULSE 78; RESP 16; TEMP 98.2
== END ==
LOC: PROCWHC3 13:50
PROVIDERS: ATTEND Internal Medicine
DX: M81.0 Age-related osteoporosis without current pathological fracture (principal)
CPT/HCPCS: 96372; J0897

== ENCOUNTER → 2023-09-13 | Outpatient (CLI) | payer MEDICARE, OTHER | END | disposition home or self-care (01) | LOC: LABWHC1 08:57 | PROVIDERS: ATTEND Ophthalmology | DX: M35.00 Sjogren syndrome, unspecified (principal) | CPT/HCPCS: 36415; 86235; 86431 ==

== ENCOUNTER → 2024-02-03 | Outpatient (CLI) | payer MEDICARE, OTHER | END | disposition home or self-care (01) | LOC: LABWHC1 10:06 | DX: A04.8 Other specified bacterial intestinal infections (principal) | CPT/HCPCS: 87338 ==